=== PATIENT | male | born 1950 | race Caucasian/White ===

== ENCOUNTER 2020-09-28 07:59 | Emergency (ER) | payer MEDICARE, SELFPAY ==
[2020-09-28 08:09] VITALS: BP 149/80; PULSE 74; RESP 12; TEMP 36.5; O2SAT 100
--- NOTE | 2020-09-28 08:23 | ED.LOWEXIN ---
HPI - Extremity Injury (Lower) General Chief Complaint: Extremity Injury, Lower Stated Complaint: lt snyder injury Time Seen by Provider: 09/28/20 08:15 Source: patient and RN notes reviewed Mode of arrival: ambulatory Limitations: no limitations History of Present Illness HPI Narrative: Patient presents today complaining of a wound to his left lower leg that was sustained 3 days ago. He reports a hard plastic barrel fell and scraped the snyder area on his leg. Currently rates his pain 3/10, which occasionally increases with movement and walking. He has been taking aspirin and using Neosporin with some relief. He is not up-to-date on his tetanus vaccine. He does report some swelling and bruising to the ankle. Reports he does continue to walk on his treadmill after the injury. Denies numbness or tingling in the leg or foot. History of diabetes and psoriatic arthritis. Related Data Home Medications Medication Instructions Recorded Confirmed infliximab [Remicade] IV 06/11/19 12/18/19 allopurinol 100 mg tablet 100 mg PO DAILY tablet 12/18/19 12/18/19 Allergies Allergy/AdvReac Type Severity Reaction Status Date / Time No Known Allergies Allergy Verified 12/18/19 10:03 Review of Systems Review of Systems: Narrative: CONSTITUTIONAL: Denies body aches, fever, chills, or sweats. EYES: Denies visual changes, redness, or discharge. ENT: Denies rhinorrhea, congestion, sore throat, or otalgia. CARDIOVASCULAR: Denies chest pain, palpitations, or edema. RESPIRATORY: Denies cough or dyspnea. GASTROINTESTINAL: Denies abdominal pain, nausea, vomiting, or diarrhea. GENITOURINARY: Denies dysuria or hematuria. SKIN: Denies rash, itching. + Wound to the left lower leg MUSCULOSKELETAL: Denies back pain, joint pain, or myalgia. NEUROLOGIC: Denies headache, numbness, tingling, or weakness. PSYCH: Denies depression or anxiety. [facility] Past Medical History Medical History Angina at rest Anxiety Diabetes Elevated liver enzymes Chronic Fracture, ribs Gout HLD (hyperlipidemia) HTN (hypertension) Kidney stones ARNOLD on CPAP Psoriatic arthritis Sleep apnea Type 2 diabetes mellitus Family History Family History Father Family history of elevated blood lipids Family history of cardiovascular disease, Onset Age: 63 Mother Family history of malignant neoplasm of breast in first degree relative Social History Social History Smoking status: Never smoker Second hand tobacco smoke exposure: No Alcohol intake: current Gender identity (if verbalized by the patient): Male Comments At time of signature, I have reviewed and agree with nursing past medical, surgical, social and family history unless otherwise noted. Please see nursing chart for further information. There is no relevant family history pertinent to the presenting complaint Exam Narrative: Exam Narrative: GENERAL: Well-appearing, well-nourished, and in no acute distress. HEAD: Normocephalic, atraumatic. EYES: EOMI. No redness or drainage. Conjunctivae normal. ENT: Mucous membranes pink and moist. NECK: Normal AROM. CHEST: No respiratory distress. EXTREMITIES: Normal range of motion. No edema. SKIN: Warm, dry, no rash. Capillary refill normal. Normal skin turgor. Approximately 3 x 3 cm irregularly shaped scabbed over skin tear to the left snyder with mild surrounding erythema. Wound is dry. There is ~0.5cm round blister with yellow filled fluid to the left lower edge of the wound. No induration or fluctuance noted. Patient's left ankle has some 1+ pitting edema and some dependent ecchymosis. Distal sensation intact. Capillary refill normal. Pedal pulses normal. Full range of motion of the ankle without pain. Ankle is nontender. NEURO: No focal deficits. Alert and orien
[2020-09-28] MEDS: TETANUS/DIPHTHERIA TOXOIDS ADSORB 0.5 ML VIAL (*BKC) IM (08:34)
== END 2020-09-28 09:03 | disposition home or self-care (01) ==
PROVIDERS: Emergency Provider Nurse Practitioner
DX: S81.812A Laceration without foreign body, left lower leg, initial encounter (principal); L08.9 Local infection of the skin and subcutaneous tissue, unspecified; W20.8XXA Other cause of strike by thrown, projected or falling object, initial encounter; Z23 Encounter for immunization; E11.9 Type 2 diabetes mellitus without complications; L40.50 Arthropathic psoriasis, unspecified; M10.9 Gout, unspecified; E78.5 Hyperlipidemia, unspecified; I10 Essential (primary) hypertension; G47.30 Sleep apnea, unspecified; I20.9 Angina pectoris, unspecified; F41.9 Anxiety disorder, unspecified
CPT/HCPCS: 90471; 90714; 99213; G0463

== ENCOUNTER 2023-05-23 15:39 | Emergency (ER) | payer MEDICARE, SELFPAY ==
[2023-05-23] VITALS (18 sets, daily range): BP systolic 158–193; BP diastolic 76–99; PULSE 61–82; RESP 10–18; TEMP 36.6; O2SAT 95–100
--- NOTE | ~2023-05-23 | XR_ITS ---
EXAMINATION: XR chest 2V DATE: 05/23/2023 16:13 INDICATION: Nonradiating chest pain. TECHNIQUE: Frontal and lateral views of the chest were obtained. COMPARISON: Chest 2 views 02/27/2016, CT abdomen and pelvis 05/20/2016 FINDINGS: There is no pneumonia, pleural effusion, or pneumothorax. The heart size is normal. There a re old healed left rib fractures. IMPRESSION: 1. No acute cardiopulmonary disease. Reviewed, dictated and finalized at location E.
--- NOTE | 2023-05-23 15:41 | ECG_ITS ---
Measurements Intervals [place] Rate: 69 P: 29 [place]: 216 QRS: 55 QRSD: 110 T: -6 QT: 383 QTc: 412 Interpretive Statements SINUS RHYTHM WITH FIRST DEGREE AV BLOCK CANNOT RULE OUT iNFERIOR MYOCARDIAL INFARCTION , PROBABLY OLD [40+ ms Q WAVE AND/OR ST/T ABNORMALITY IN II/aVF] LOW-VOLTAGE QRS IN PRECORDIAL LEADS ABNORMAL ECG NO PREVIOUS ECG AVAILABLE FOR COMPARISON Electronically Signed On 05-23-2023 18:39:26 CDT by Alf Morales M.D.
[2023-05-23 16:15] LABS: Basophils Absolute Auto 0.1 K/mm3 (0.0-0.1); Basophils Percent Auto 0.8 % (0.2-1.2); Hematocrit 42.1 % (42.0-52.0); Hemoglobin 13.6 g/dL (14.0-18.0); Immature Granulocyte Absolute 0.03 K/mm3 (0.00-0.031); Immature Granulocyte Percent A 0.4 % (0-0.5); Lymphocytes Absolute Auto 2.86 K/mm3 (0.9-3.2); Lymphocytes Percent Auto 38.9 % (18.3-44.2); Mean Corpuscular HGB Conc 32.3 g/dl (32-36); Mean Corpuscular Hemoglobin 32.4 pg (26-34); Mean Corpuscular Volume 100.2 fl (80-100); Mean Platelet Volume 9.5 fl (7.4-10.4); Monocytes Absolute Auto 0.5 K/mm3 (0.1-0.6); Monocytes Percent Auto 6.7 % (2.6-8.5); Neutrophils Absolute Auto 3.9 K/mm3 (1.3-6.7); Neutrophils Percent Auto 53.2 % (45.5-73.1); Platelet Count Result 198 k/mm3 (150-375); Red Cell Distribution Width 14.3 % (11.5-14.5); White Blood Count 7.4 K/mm3 (4.5-10.0)
[2023-05-23 16:24] LABS: Alanine Aminotransferase 26 U/L (6-50); Albumin Level 4.4 g/dL (3.5-5.1); Alkaline Phosphatase 92 U/L (38-126); Anion Gap 8 mmol/L (8-16); Aspartate Amino Transferase 39 U/L (17-59); Bilirubin,Total 0.7 mg/dL (0.2-1.3); Blood Urea Nitrogen 18 mg/dL (9-20); Calcium 9.6 mg/dL (8.4-10.2); Carbon Dioxide 25 mmol/L (22-30); Chloride 104 mmol/L (98-107); Estimated CRCL calculation 70 ml/min; Estimated Glomerular Filt Rate > 60; Glucose 139 mg/dL (65-110); Lipase 382 U/L (23-300); Potassium 3.7 mmol/L (3.4-5.0); Sodium 137 mmol/L (137-145)
[2023-05-23 16:26] LABS: INR 1.2; Partial Thromboplastin Time 38.3 SECONDS (22.3-36.8); Prothrombin Time 15.6 Seconds (11.1-14.7)
[2023-05-23 16:36] LABS: Troponin I < 0.012 ng/mL (0.000-0.034)
--- NOTE | 2023-05-23 18:28 | ED.CHESTPAIN ---
HPI - Chest Pain General Chief Complaint: Chest Pain Stated Complaint: chest pain Time Seen by Provider: 05/23/23 18:06 History of Present Illness HPI narrative: Patient is a 72-year-old male with history of hypertension, psoriatic arthritis, aortic stenosis, hyperlipidemia, diabetes presenting with palpitations. Patient states that earlier today he had an episode of chest tightness associated with palpitations. States that he has been struggling with worsening anxiety over the last couple of months. No lightheadedness or shortness of breath. No leg swelling. No fevers or chills, cough, abdominal pain, nausea or vomiting, diarrhea, numbness or weakness. Related Data Home Medications Medication Instructions Recorded Confirmed infliximab 100 mg intravenous IV 06/11/19 12/18/19 solution (Remicade) allopurinol 100 mg tablet 100 mg PO DAILY 12/18/19 12/18/19 Allergies Allergy/AdvReac Type Severity Reaction Status Date / Time No Known Allergies Allergy Verified 05/23/23 18:08 Review of Systems Review of Systems: All systems reviewed & are unremarkable except as noted in HPI and below PMFSH Past Medical History Medical History Angina at rest Anxiety Diabetes Elevated liver enzymes Chronic Fracture, ribs Gout HLD (hyperlipidemia) HTN (hypertension) Kidney stones ARNOLD on CPAP Psoriatic arthritis Sleep apnea Type 2 diabetes mellitus Family History Family History Father Family history of elevated blood lipids Family history of cardiovascular disease, Onset Age: 63 Mother Family history of malignant neoplasm of breast in first degree relative Social History Social History Smoking status: Never smoker Second hand tobacco smoke exposure: No Alcohol intake: current Gender identity (if verbalized by the patient): Male Exam Narrative: GENERAL: Well-appearing, in no acute distress, pleasant and cooperative HEAD: Normocephalic, atraumatic. EYES: PERRLA and EOMI. ENT: Grossly unremarkable NECK: Supple. CHEST: Clear to auscultation. No respiratory distress. HEART: Regular rate and rhythm. +murmur ABDOMEN: Soft, nontender, nondistended EXTREMITIES: Normal range of motion. No edema. SKIN: Warm, dry, no rash. NEURO: No focal deficits. Alert and oriented x3. PSYCH: Normal mood and affect. Course Vital Signs Vital signs: Vital Signs Temperature 97.8 F 05/23/23 15:49 Pulse Rate 81 05/23/23 15:49 Respiratory Rate 18 05/23/23 15:49 Blood Pressure 158/76 H 05/23/23 15:49 Pulse Oximetry 100 05/23/23 15:49 Oxygen Delivery Room Air 05/23/23 15:49 Temperature 97.8 F 05/23/23 15:49 Pulse Rate 62 05/23/23 22:01 Respiratory Rate 17 05/23/23 22:01 Blood Pressure 175/88 H 05/23/23 22:01 Pulse Oximetry 98 05/23/23 22:01 Oxygen Delivery Room Air 05/23/23 18:06 MDM - Chest Pain MDM Narrative Medical decision making narrative: Patient is a 72-year-old male presenting with an episode of chest tightness and palpitations. Patient is hypertensive, otherwise vitals are within normal limits. Exam remarkable for the above. EKG per my interpretation shows normal sinus rhythm, first-degree AV block, no ST elevations or depressions. Blood work is unremarkable. Troponins within normal limits. Lipase very mildly elevated. Does not meet criteria for pancreatitis. TSH is normal. Chest x-ray without acute abnormalities. Patient given a dose of lorazepam as he does report very significant anxiety. He and his state that his anxiety has been increasingly severe over the last year or so. Discussed the reassuring work-up and advised that he follow-up closely with his PCP. He actually has a stress test next week, advised to make sure that he keep this appointment. Strict return prec
[2023-05-23] MEDS: SODIUM CHLORIDE 0.9% IV 1,000 ML 999 ML IV CONT (19:00)
[2023-05-23] MEDS: LORazepam (*CRX) 0.5 MG TABLET PO (19:00)
[2023-05-23 19:31] LABS: Troponin I 0.014 ng/mL (0.000-0.034)
== END 2023-05-23 22:02 | disposition home or self-care (01) ==
PROVIDERS: Emergency Medicine; Emergency Provider Emergency Medicine
DX: R07.89 Other chest pain (principal); F41.9 Anxiety disorder, unspecified; R00.2 Palpitations; I10 Essential (primary) hypertension; E78.5 Hyperlipidemia, unspecified; E11.9 Type 2 diabetes mellitus without complications
CPT/HCPCS: 36415; 71046; 80053; 83690; 84443; 84484; 85025; 85610; 85730; 93005; 96360; 99284; A9270; J7030

== ENCOUNTER 2023-06-15 03:05 | Day surgery (SDC) | payer MEDICARE, SELFPAY ==
[2023-06-15] VITALS (17 sets, daily range): BP systolic 130–165; BP diastolic 72–90; PULSE 61–78; RESP 12–19; TEMP 36.6; O2SAT 96–100; BMI 31.8
[2023-06-15 10:45] LABS: Basophils Absolute Auto 0.1 K/mm3 (0.0-0.1); Eosinophils Percent Auto 0.1 % (0-4.4); Hematocrit 43.2 % (42.0-52.0); Hemoglobin 13.9 g/dL (14.0-18.0); Immature Granulocyte Absolute 0.01 K/mm3 (0.00-0.031); Immature Granulocyte Percent A 0.1 % (0-0.5); Lymphocytes Absolute Auto 3.69 K/mm3 (0.9-3.2); Lymphocytes Percent Auto 44.4 % (18.3-44.2); Mean Corpuscular HGB Conc 32.2 g/dl (32-36); Mean Corpuscular Hemoglobin 32.2 pg (26-34); Mean Platelet Volume 9.5 fl (7.4-10.4); Monocytes Absolute Auto 0.5 K/mm3 (0.1-0.6); Monocytes Percent Auto 6.4 % (2.6-8.5); Platelet Count Result 193 k/mm3 (150-375); Red Blood Count 4.32 M/mm3 (4.6-6.20); Red Cell Distribution Width 14.2 % (11.5-14.5); White Blood Count 8.3 K/mm3 (4.5-10.0)
[2023-06-15 11:15] LABS: Anion Gap 11 mmol/L (8-16); Blood Urea Nitrogen 20 mg/dL (9-20); Carbon Dioxide 24 mmol/L (22-30); Chloride 105 mmol/L (98-107); Estimated CRCL calculation 70 ml/min; Estimated Glomerular Filt Rate > 60; Glucose 116 mg/dL (65-110); Potassium 3.8 mmol/L (3.4-5.0); Sodium 140 mmol/L (137-145)
--- NOTE | 2023-06-15 11:58 | WPDMODSED ---
Moderate Sedation Note-Pt Data Patient Data Diagnosis: intermittent chest pain abnormal nuclear stress test known history of aortic stenosis felt to be mild Present Complaint: no complaint other than procedural anxiety Procedure to be performed/Plan: coronary angiography Allergies Allergy/AdvReac Type Severity Reaction Status Date / Time No Known Allergies Allergy Verified 06/15/23 10:21 Home Medications Medication Instructions Recorded Confirmed Type allopurinol 100 mg tablet 300 mg PO DAILY 12/18/19 06/14/23 History blood sugar diagnostic (Accu-Chek #100 ea 12/19/19 Rx Guide test strips) blood-glucose meter (Accu-Chek #1 ea 12/19/19 Rx Guide Glucose Meter) lancets (Accu-Chek Fastclix Lancet #100 ea 12/19/19 Rx Drum) pioglitazone 45 mg tablet 45 mg PO DAILY #90 tabs 03/09/20 06/14/23 Rx semaglutide 7 mg tablet (Rybelsus) 7 mg PO DAILY #90 tabs 04/01/20 06/14/23 Rx olmesartan 40 mg tablet 40 mg PO DAILY #90 tabs 10/27/20 06/14/23 Rx aspirin 81 mg tablet,delayed 81 mg PO DAILY 06/14/23 06/14/23 History release atorvastatin 40 mg tablet 40 mg PO HS 06/14/23 06/14/23 History infliximab-axxq 100 mg intravenous 700 mg IV DIRECTED 06/14/23 06/14/23 History solution (Avsola) metoprolol succinate 25 mg 25 mg PO DAILY 06/14/23 06/14/23 History tablet,extended release 24 hr sildenafil 50 mg tablet 50 mg PO DAILY PRN impotence 06/14/23 06/14/23 History Current Medications: Active Medications Sodium Chloride (Normal Saline Iv) 500 mls @ 100 mls/hr IV CONT .Q5H JOHNATHON Sedation/Anesthesia: No previous sedation/anesthesia problems (including family history). [facility] Past Medical History Medical History Angina at rest Anxiety Diabetes Elevated liver enzymes Chronic Fracture, ribs Gout HLD (hyperlipidemia) HTN (hypertension) Kidney stones ARNOLD on CPAP Psoriatic arthritis Sleep apnea Type 2 diabetes mellitus Family History Family History Father Family history of elevated blood lipids Family history of cardiovascular disease, Onset Age: 63 Mother Family history of malignant neoplasm of breast in first degree relative Social History Social History Smoking status: Never smoker Second hand tobacco smoke exposure: No Alcohol intake: current Alcohol use details: 2 drinks per month Substance use: never Substance use type: does not use Living arrangements: with family Gender identity (if verbalized by the patient): Male Spiritual care concerns: No Mod Sed Physical Exam Physical Exam Pre Procedural Exam: Normal: Appearance, Neck, Throat, Airway, Lungs, Heart Size, Heart Rate ( grade 3/6 crescendo decrescendo murmur audible at the base), Heart Rhythm, Neuro Exam and Extremities Hours since solid foods: 12 Hours since liquid intake: 12 Mallampati Classification: class II Internal Medicine - PN: Obj Da Vital Signs Vital Signs: Vital Signs - 24 hr 06/15/23 10:26 Temperature 36.6 C Pulse Rate 69 Respiratory Rate 16 Blood Pressure 162/81 H Pulse Oximetry 100 Oxygen Delivery Room Air Meds/Results Medications: Active Medications Generic Name Dose Route Start Last Admin Trade Name Freq PRN Reason Stop Dose Admin Sodium Chloride 500 mls @ 100 mls/hr 06/15/23 10:00 Normal Saline Iv IV CONT .Q5H JOHNATHON Labs 06/15/23 10:24 06/15/23 10:24 Labs: Laboratory Results - last 24 hr 06/15/23 10:24 WBC 8.3 RBC 4.32 L Hgb 13.9 L Hct 43.2 MCV 100.0 MCH 32.2 MCHC 32.2 RDW 14.2 Plt Count 193 MPV 9.5 Immature Gran % (Auto) 0.1 Neut % (Auto) 48.0 Lymph % (Auto) 44.4 H Comal % (Auto) 6.4 Eos % (Auto) 0.1 Baso % (Auto) 1.0 Lymph # (Auto) 3.69 H Comal # (Auto) 0.5 Eos # (Auto) 0.0 Baso # (Auto) 0.1 Abs I
--- NOTE | 2023-06-15 12:51 | WPDCARDPROC ---
Cardiac Cath Procedure Note Date of procedure:: 06/15/23 Performing physician:: Negrito Burnett MD Indication:: intermittent chest tightness abnormal nuclear stress test aortic stenosis Brief clinical history:: this is a 72-year-old gentleman previous history of coronary disease referred for angiography because of mildly abnormal Lexiscan stress test showing apical lateral perfusion abnormality. He is known to have aortic valve stenosis which is felt to be [id number]. To clarify coronary anatomy this exam has been recommended Procedure Procedure performed:: coronary angiography Sedation/Medication given:: fentanyl 50 mg Versed 2 mg case start time 12:02 p.m. case end time 12:44 p.m. sedation provided by Qasim Clay RN trained observer Access site:: right femoral artery Estimated blood loss:: 50 cc Procedure note:: patient was brought to the cardiac catheterization lab in the postabsorptive state where the right femoral triangle was prepared and draped in the normal fashion. Anesthesia was provided with 1% lidocaine infiltrated locally. Using modified Seldinger technique the femoral artery was punctured and a 5 Cameroonian vascular sheath placed. I noted that on advancing the J wire from the sheath into the iliac artery there was calcific plaque in the artery prohibiting advancing the sheath wire any further. After placing the vascular sheath I then used a Dara wire mounted on the RCA catheter to access the central aorta this was then advanced into the aortic root. Initially I was unable to use this catheter to engage the right coronary ostium successfully. I then exchanged for a longer 22 cm sheath and used the FL4 catheter over the 035 guidewire to engage and inject the left coronary artery in multiple projections. I then used the same guidewire to advance the JR4 catheter into the aortic root. I was still unable to torque the catheter successfully because of the disease in the iliac. I then over the 035 guidewire exchanged for a 45 cm 5 Cameroonian sheath. Following this I once again attempted to engage the right coronary ostium. This was unsuccessful I was able to successfully engage and inject the right coronary ultimately with a AR modified catheter. Following this the cineangiograms were reviewed and the case was terminated. The patient was taken to the holding area for manual sheath removal. He tolerated seizure well there were no apparent complications. There was no evidence of groin hematoma upon completion of the case. Findings:: Hemodynamics: Central aortic pressure is 153/73. we did not cross the stenotic aortic valve to measure LV pressure during this procedure the left main coronary artery is medium in caliber and has eccentric stenosis. In the cranial projections there appears to be as much as 50 60% stenosis in the a caudal projections there is no significant lesion. There was no pressure damping on engaging the left main coronary artery. The left anterior descending is a medium caliber artery with extends down to the apex. The LAD has minimal luminal irregularity to there is some calcium but no high-grade stenosis is seen. There is a uncommon discrete aneurysmal area in the mid LAD at the origin of the largest diagonal branch. This has a discrete villagran aneurysm like appearance the circumflex is a moderate caliber artery giving rise to the marginal branches. The circumflex system has modest luminal irregularities but no flow-limiting lesions are seen. The right coronary artery is a large caliber vessel with a inferior takeoff. It is dominant to the posterior circulation. The proximal right coronary artery has a eccentric shelf-like lesion representing about 50% stenosis. The remainder of the right coronary artery is free of significant disease. Conclusion:: 1. Coronary artery disease involving what appears to be moderate non flow-limiting disease of the left main as describe
== END 2023-06-15 18:40 | disposition home or self-care (01) ==
PROVIDERS: Visit Provider Specialist
PROC: 4A023N7 Measurement of Cardiac Sampling and Pressure, Left Heart, Percutaneous Approach (ICD-10-PCS; CPT 93452; principal; 2023-06-15 11:30)
DX: R94.39 Abnormal result of other cardiovascular function study (principal); I25.10 Atherosclerotic heart disease of native coronary artery without angina pectoris; I77.89 Other specified disorders of arteries and arterioles; F41.9 Anxiety disorder, unspecified; E11.9 Type 2 diabetes mellitus without complications; E78.5 Hyperlipidemia, unspecified; I10 Essential (primary) hypertension; G47.33 Obstructive sleep apnea (adult) (pediatric); G47.30 Sleep apnea, unspecified; Z99.89 Dependence on other enabling machines and devices; Z79.82 Long term (current) use of aspirin; Z79.85 Long-term (current) use of injectable non-insulin antidiabetic drugs; Z86.79 Personal history of other diseases of the circulatory system; Z80.3 Family history of malignant neoplasm of breast; Z82.49 Family history of ischemic heart disease and other diseases of the circulatory system
CPT/HCPCS: 36415; 80048; 85025; 93458; C1769; C1887; C1894; J1644; J2250; J3010; J7040

== ENCOUNTER 2023-09-21 19:26 | Inpatient (IN) | payer MEDICARE, SELFPAY ==
--- NOTE | ~2023-09-21 | XR_ITS ---
EXAMINATION: XR chest 2V Exam Date/Time: 09/21/2023 20:40 SAP PROJECT MANAGER HISTORY: dyspnea, post CABG, pt wearing holter monitor Comparison: 05/23/2023. RESULT: Lines, tubes, and devices: Electronic device projects over the chest. Intact sternotomy wires. Cardi ac valve replacement. Lungs and pleura: Subsegmental bibasilar airspace disease. Moderate bilateral costophrenic angle linda nting. Cardiomediastinal silhouette: Stable. Other: No acute osseous or upper abdominal finding. IMPRESSION: Moderate bilateral effusions, with likely bibasilar atelectasis. Infection not excluded. Reviewed, dictated and finalized at location K. PROJECT MANAGER
--- NOTE | ~2023-09-21 | XR_ITS ---
Portable chest x-ray Comparison: 09/24/2023 Clinical History: Right effusion Findings: [id number] bilateral pleural effusions. Cardiomediastinal silhouette is stable, st atus post aortic valve replacement. Bones and soft tissues are unremarkable. Impression: [id number] bilateral pleural effusions. Reviewed, dictated and finalized at [facility]. INSPECTOR Impression: [id number] bilateral pleural effusions.
--- NOTE | ~2023-09-21 | XR_ITS ---
EXAMINATION: [id number] DATE: 09/24/2023 15:08 INDICATION: Status post thoracentesis TECHNIQUE: frontal and lateral views of the chest were obtained. COMPARISON: Chest radiograph dated 09/24/2023 at 9:35 AM FINDINGS: Improvement in aeration in the right lower lung zone. Unchanged small left and decreased now small ri ght pleural effusions with blunting of the costophrenic angles and posterior sulci. Associated basila r atelectasis. No pulmonary edema or pneumothorax. Cardiomegaly. Median sternotomy wires and mediasti nal surgical clips are seen, likely from prior coronary artery bypass grafting. Is also been prior ao rtic valve repair. IMPRESSION: 1. Unchanged small left and decreased now small right pleural effusion post thoracentesis with improv ed aeration at the right lower lung zone. Reviewed, dictated and finalized at location A. RTISING SALES EXECUTIVE IMPRESSION: 1. Unchanged small left and decreased now small right pleural effusion post tho racentesis with improved aeration at the right lower lung zone.
--- NOTE | ~2023-09-21 | US_ITS ---
EXAMINATION: US thoracentesis DATE: 09/24/2023 15:10 INDICATION: pleural effusion TECHNIQUE: The procedure and its risks and benefits were discussed with the patient. Potential risks discussed included bleeding, infection, and pneumothorax. The patient understood the risks and agreed to proceed. The skin was prepped and draped in sterile fashion. 1% lidocaine was used for local anes thesia. Under ultrasound guidance, a 5 Fr catheter with trochar was advanced into the right pleural e ffusion. Fluid was aspirated. The catheter was removed, and a dressing was applied. There were no imm ediate complications. FINDINGS: Ultrasound images demonstrate a moderate-sized right pleural effusion and the catheter within the flu id. IMPRESSION: 1. Successful ultrasound-guided thoracentesis yielding 1000 mL of dark reddish rohan-colored fluid. Reviewed, dictated and finalized at location A. ICE SUPERINTENDENT
--- NOTE | ~2023-09-21 | CT_ITS ---
EXAMINATION: CTA chest PE protocol DATE: 09/22/2023 00:35 INDICATION: Dyspnea. Coronary artery bypass grafting. Weeks prior. TECHNIQUE: Computed tomography (CT) pulmonary angiogram of the chest was performed with 100 mL Omnipa que-350 intravenous contrast. Additional 3D reconstructions utilizing coronal maximum intensity proje ction (MIP) were performed. Automated exposure control and iterative reconstruction technique were em ployed. The dose-length product was 699.00 mGy-cm. COMPARISON: CT abdomen pelvis dated 09/20/2015 FINDINGS: No pulmonary embolism. Moderate-sized right and small left pleural effusions with collapse of the bas ilar segments of the bilateral lower lobes. And mild dependent atelectasis in the lingula and right m iddle lobe. Aerated portion of lungs are clear with no, pneumonia or pulmonary edema. Heart size is n ormal. Atherosclerotic coronary artery calcification and change of prior median sternotomy and gerard ry artery bypass grafting. Aortic valve repair. Thoracic aorta is normal caliber with no dissection. No pathologically enlarged thoracic lymphadenopathy. 12 x 4 mm stone or cluster of stones at an upper pole calyx of the left kidney. Mild thoracic kyphosis with mild anterior wedging of a few mid thorac ic vertebral bodies. Schmorl's node along the superior endplate of T4. IMPRESSION: 1. No pulmonary embolism. 2. Moderate right and small left pleural effusions with associated atelectasis. 3. Small pericardial effusion. 4. Left nephrolithiasis. Reviewed, dictated and finalized at location A. ENT DEVELOPMENT COORDINATOR
--- NOTE | ~2023-09-21 | XR_ITS ---
EXAMINATION: XR chest 2V DATE: 09/24/2023 09:37 INDICATION: Pleural effusions TECHNIQUE: Frontal and lateral views of the chest are obtained COMPARISON: 09/23/2023 FINDINGS: There are moderate-sized right and small left pleural effusions without significant change. Associated bibasilar airspace opacities are stable. The heart size is normal. There are changes of c ardiac valve replacement. There is mild thoracic spondylosis. Healed left-sided rib fractures are not ed. IMPRESSION: 1. Moderate size right and small left pleural effusions with associated bibasilar atelectasis, stable . Reviewed, dictated and finalized at location B. UNT SUPPORT MANAGER IMPRESSION: 1. Moderate size right and small left pleural effusions with associated bibasil ar atelectasis, stable.
[2023-09-21 19:49] VITALS: BP 143/84; PULSE 87; RESP 18; TEMP 36.3; O2SAT 93
--- NOTE | 2023-09-21 19:54 | ECG_ITS ---
Measurements Intervals [place] Rate: 84 P: 46 CT: 202 QRS: 90 QRSD: 97 T: 9 QT: 360 QTc: 427 Interpretive Statements SINUS RHYTHM WITH FREQUENT VENTRICULAR PREMATURE COMPLEXES NONSPECIFIC T-WAVE ABNORMALITY POOR R-WAVE PROGRESSION ABNORMAL ECG COMPARED TO ECG 05/23/2023 16:07:15 NO SIGNIFICANT CHANGES Electronically Signed On 09-22-2023 8:19:04 PROPERTY CUSTODIAN by Negrito Burnett M.D.
--- NOTE | 2023-09-21 19:55 | ED.SOB ---
HPI - SOB/Dyspnea General Chief Complaint: Shortness of Breath/Dyspnea Stated Complaint: SOB- open heart sx 4wk ago Time Seen by Provider: 09/21/23 23:37 Focused HPI: 73 y/o M who is s/p CABG and aortic valve replacement 5 weeks ago reports for evaluation for exertional dyspnea x1 day. Pt had 3 vessel CABG performed at [facility] and since then, has had progressive improvement with dyspnea, waking 8-10 minutes per day. States today he cant even walk 20 seconds without becoming out of breath. States after surgery, he developed arrhythmias including A fib, unsure of the remainder. He has a Holter monitor in place. He was started on Xarelto 3 days ago by his digital advertising analyst, Dr. Holly. He reports soreness in his chest he is attributing to post op pain, otherwise denies CP. Reports cough in the morning, denies fever, BLE, hemoptysis. GENERAL: Well-appearing, well-nourished, and in no acute distress. HEAD: Normocephalic, atraumatic. CHEST: Clear to auscultation. ?No respiratory distress. Well healing sternal incision without surrounding erythema, induratio or fluctuation. 1+ BLE HEART: Regular rate and rhythm.? NEURO: ?Alert and oriented x3. Patient screened in triage and initial orders placed.? ?Additional care and disposition to be based upon?diagnostic testing and treatment. History of Present Illness HPI Narrative: 73 y/o M who is s/p CABG and aortic valve replacement 5 weeks ago reports for evaluation for exertional dyspnea x1 day. Pt had 3 vessel CABG performed at [facility] and since then, has had progressive improvement with dyspnea, waking 8-10 minutes per day. States today he cant even walk 20 seconds without becoming out of breath. States after surgery, he developed arrhythmias including A fib, unsure of the remainder. He has a Holter monitor in place. He was started on Xarelto 3 days ago by his digital advertising analyst, Dr. Holly. He reports soreness in his chest he is attributing to post op pain, otherwise denies CP. Reports mildly increased lower extremity edema bilaterally. Reports cough in the morning, denies fever, hemoptysis. Patient wears a CPAP at night. Related Data Home Medications Medication Instructions Recorded Confirmed allopurinol 100 mg tablet 300 mg PO DAILY 12/18/19 06/14/23 aspirin 81 mg tablet,delayed 81 mg PO DAILY 06/14/23 06/14/23 release atorvastatin 40 mg tablet 40 mg PO HS 06/14/23 06/14/23 infliximab-axxq 100 mg intravenous 700 mg IV DIRECTED 06/14/23 06/14/23 solution (Avsola) metoprolol succinate 25 mg 25 mg PO DAILY 06/14/23 06/14/23 tablet,extended release 24 hr sildenafil 50 mg tablet 50 mg PO DAILY PRN impotence 06/14/23 06/14/23 Allergies Allergy/AdvReac Type Severity Reaction Status Date / Time No Known Allergies Allergy Verified 09/21/23 19:55 Review of Systems Review of Systems: CONSTITUTIONAL: Denies fever, chills, or sweats. EYES: Denies visual changes, redness, or discharge. ENT: Denies rhinorrhea, congestion, sore throat, or otalgia. CARDIOVASCULAR: See HPI RESPIRATORY: See HPI GASTROINTESTINAL: Denies abdominal pain, nausea, vomiting, or diarrhea. GENITOURINARY: Denies dysuria or hematuria. SKIN: Denies rash or itching. MUSCULOSKELETAL: Denies back pain, joint pain, or myalgia. NEUROLOGIC: Denies headache, numbness, or weakness. PSYCHIATRIC: Denies anxiety or depression. [facility] Past Medical History Medical History Angina at rest Anxiety Diabetes Elevated liver enzymes Chronic Fracture, ribs Gout HLD (hyperlipidemia) HTN (hypertension) Kidney stones ARNOLD on CPAP Psoriatic arthritis Sleep apnea Type 2 diabetes mellitus Family History Family History Father Family history of elevated blood lipids Family history of cardiovascular disease, Onset Age: 63 Mother Family history of malignant neoplasm of breast in first degree relative Social H
[2023-09-21 20:18] LABS: Basophils Absolute Auto 0.1 K/mm3 (0.0-0.1); Basophils Percent Auto 0.8 % (0.2-1.2); Hematocrit 37.9 % (42.0-52.0); Immature Granulocyte Absolute 0.02 K/mm3 (0.00-0.031); Immature Granulocyte Percent A 0.2 % (0-0.5); Lymphocytes Absolute Auto 2.81 K/mm3 (0.9-3.2); Lymphocytes Percent Auto 27.8 % (18.3-44.2); Mean Corpuscular HGB Conc 31.7 g/dl (32-36); Mean Corpuscular Hemoglobin 30.5 pg (26-34); Mean Corpuscular Volume 96.2 fl (80-100); Mean Platelet Volume 9.6 fl (7.4-10.4); Monocytes Absolute Auto 0.6 K/mm3 (0.1-0.6); Neutrophils Absolute Auto 6.6 K/mm3 (1.3-6.7); Neutrophils Percent Auto 65.2 % (45.5-73.1); Platelet Count Result 252 k/mm3 (150-375); Red Blood Count 3.94 M/mm3 (4.6-6.20); Red Cell Distribution Width 15.5 % (11.5-14.5); White Blood Count 10.1 K/mm3 (4.5-10.0)
[2023-09-21 20:28] LABS: Alanine Aminotransferase 21 U/L (6-50); Albumin Level 3.7 g/dL (3.5-5.1); Alkaline Phosphatase 239 U/L (38-126); Anion Gap 7 mmol/L (8-16); Aspartate Amino Transferase 37 U/L (17-59); Bilirubin,Total 0.8 mg/dL (0.2-1.3); Blood Urea Nitrogen 11 mg/dL (9-20); Calcium 9.6 mg/dL (8.4-10.2); Carbon Dioxide 26 mmol/L (22-30); Chloride 103 mmol/L (98-107); Estimated CRCL calculation 75 ml/min; Estimated Glomerular Filt Rate > 60; Glucose 162 mg/dL (65-110); Lipase 306 U/L (23-300); Potassium 3.9 mmol/L (3.4-5.0); Sodium 136 mmol/L (137-145)
[2023-09-21 20:31] LABS: INR 3.2
[2023-09-21 20:32] LABS: Partial Thromboplastin Time 68.2 SECONDS (22.3-36.8)
[2023-09-21 20:40] LABS: NT Pro B Type Natriuretic Pept 545 pg/mL (19.9-100); Troponin I < 0.012 ng/mL (0.000-0.034)
[2023-09-22] VITALS (29 sets, daily range): BP systolic 112–176; BP diastolic 58–106; PULSE 70–93; RESP 18–37; TEMP 35.8–36.4; O2SAT 92–99; BMI 29.3
--- NOTE | 2023-09-22 | ECG_ITS ---
Measurements Intervals [place] Rate: 77 P: 24 NH: 215 QRS: 75 QRSD: 102 T: 46 QT: 372 QTc: 422 Interpretive Statements SINUS RHYTHM WITH FREQUENT VENTRICULAR PREMATURE COMPLEXES POSSIBLE LEFT ATRIAL ENLARGEMENT [-0.1mV P-WAVE IN V1/V2] POOR R-WAVE PROGRESSION NONSPECIFIC T-WAVE ABNORMALITY COMPARED TO ECG 09/21/2023 20:08:37 NO DIFFERENCE Electronically Signed On 09-22-2023 8:28:19 ELECTRONIC VIDEO GAMES SERVICER by Negrito Burnett M.D.
[2023-09-22 00:33] LABS: Troponin I 0.013 ng/mL (0.000-0.034)
[2023-09-22] MEDS: ASPIRIN 81 MG CHEWABLE TABLET 324 MG PO (00:43)
[2023-09-22] MEDS: FUROSEMIDE INJ 40 MG/4 ML VIAL IV PUSH ×3 (00:43→17:59)
[2023-09-22 00:53] LABS: Alveolar/Arterial O2 Gradient 59.3 mmHg; Base Excess ABG -1.3 mEq/l (+/-2.0); Fractional Inspired Oxygen 21 %; HCO3 ABG 20.9 mEq/l (22.0-26.0); Modified Allen's Test Pass; Oxygen Content ABG 15.7 %vol (16.0-22.0); Oxyhemoglobin 88.7 % THb (90.0-100.0); PCO2 ABG 28.3 mmHg (35.0-45.0); PO2 ABG 56.5 mmHg (80.0-100.0); PO2 FiO2 Ratio Arterial Blood 2.69 %; Site Drawn RIGHT RADIAL; Total Hemoglobin 12.6 g/dL (12.0-18.0); pH ABG 7.487 (7.350-7.450)
--- NOTE | 2023-09-22 03:04 | PM.IMHP ---
H&P: HPI History of Present Illness Date/Time: 09/22/23 03:04 Chief Complaint: Shortness of breath Narrative: Patient is a 70-year-old male who had 3 vessel CABG and aortic valve replacement 5 weeks ago MOBYVONNE, he said he has been doing well since then, able to walk for about 8-10 minutes PD however about few days ago he developed progressively worsening shortness of bread and yesterday he could not get out of bed due to severe short of breath, he denied cough, fever, sore throat. There is just a soreness in his chest but he attributes this to surgical site pain. He also made mention of being placed on xarelto as he was told that he had an arrhythmia following surgery. Patient was found to be tachypneic and in moderate distress on arrival to the emergency department, he was offered BiPAP and he refused, ABG showed normal pH but PO2 of 56.4, chest x-ray showed moderate bilateral pleural effusion, BNP is greater than 500. Patient was started on diuresis with IV furosemide. During this encounter, he was still up in bed was said he feels much better now, as he was unable to complete sentences sees on arrival. Review of Systems Review of Systems: All systems reviewed & are unremarkable except as noted in HPI and below PMFSH Past Medical History Medical History Angina at rest Anxiety Diabetes Elevated liver enzymes Chronic Fracture, ribs Gout HLD (hyperlipidemia) HTN (hypertension) Kidney stones ARNOLD on CPAP Psoriatic arthritis Sleep apnea Type 2 diabetes mellitus Family History Family History Father Family history of elevated blood lipids Family history of cardiovascular disease, Onset Age: 63 Mother Family history of malignant neoplasm of breast in first degree relative Social History Social History Smoking status: Never smoker Second hand tobacco smoke exposure: No Alcohol intake: current Alcohol use details: 2 drinks per month Substance use: never Substance use type: does not use Living arrangements: with family Gender identity (if verbalized by the patient): Male Spiritual care concerns: No Meds Home Medications and Allergies Home Medications Medication Instructions Recorded Confirmed Type allopurinol 100 mg tablet 300 mg PO DAILY 12/18/19 06/14/23 History blood sugar diagnostic (Accu-Chek #100 ea 12/19/19 Rx Guide test strips) blood-glucose meter (Accu-Chek #1 ea 12/19/19 Rx Guide Glucose Meter) lancets (Accu-Chek Fastclix Lancet #100 ea 12/19/19 Rx Drum) pioglitazone 45 mg tablet 45 mg PO DAILY #90 tabs 03/09/20 06/14/23 Rx semaglutide 7 mg tablet (Rybelsus) 7 mg PO DAILY #90 tabs 04/01/20 06/14/23 Rx olmesartan 40 mg tablet 40 mg PO DAILY #90 tabs 10/27/20 06/14/23 Rx aspirin 81 mg tablet,delayed 81 mg PO DAILY 06/14/23 06/14/23 History release atorvastatin 40 mg tablet 40 mg PO HS 06/14/23 06/14/23 History infliximab-axxq 100 mg intravenous 700 mg IV DIRECTED 06/14/23 06/14/23 History solution (Avsola) metoprolol succinate 25 mg 25 mg PO DAILY 06/14/23 06/14/23 History tablet,extended release 24 hr sildenafil 50 mg tablet 50 mg PO DAILY PRN impotence 06/14/23 06/14/23 History Allergies Allergy/AdvReac Type Severity Reaction Status Date / Time No Known Allergies Allergy Verified 09/21/23 19:55 Vital Signs Vital Signs - 24 hr 09/21/23 19:49 09/22/23 00:07 09/22/23 00:07 Temperature 97.4 F L Pulse Rate 87 84 Respiratory Rate 18 Blood Pressure 143/84 H Pulse Oximetry 93 95 Oxygen Delivery Room Air Room Air 09/22/23 00:45 09/22/23 00:50 09/22/23 01:01 Temperature Pulse Rate 90 86 82 Respiratory Rate 26 H 31 H 29 H Blood Pressure 176/101 H 161/98 H 157/89 H Pulse Oximetry 95 95 93 Oxygen Delivery 09/22/23 01:16 09/22/23 01:31
--- NOTE | 2023-09-22 03:17 | PC.NURSE ---
Urine output 650 MLs
[2023-09-22 04:02] LABS: Troponin I 0.016 ng/mL (0.000-0.034)
--- NOTE | 2023-09-22 06:44 | ADMGEN ---
This patient, Jordon Randall, was admitted to IMU Room 214-01 at 0640. Patient/family oriented to hospital policies and general routines including ID bracelet, bed and alarms, visiting hours, pain management, procedures, bathroom and other care routines, personal items, smoking policy, room service/diet, and visiting hours. Information on how to activate the Rapid Response Team has been discussed. Patient/Family are encouraged to report perceived risks to care and to ask questions if they do not understand what they are told or what they should do.
--- NOTE | 2023-09-22 11:03 | PM.CNCAR ---
Assessment and Plan Assessment and plan (1) Pleural effusion: Code(s): J90 - Pleural effusion, not elsewhere classified Status: Acute (2) Hx of CABG: Code(s): Z95.1 - Presence of aortocoronary bypass graft Status: Acute (3) H/O aortic valve replacement with tissue graft: Code(s): Z95.4 - Presence of other heart-valve replacement Status: Acute Plan This is a 73-year-old man with coronary disease and aortic valve disease recently undergoing bypass grafting and bioprosthetic aortic valve replacement over at [facility]. His recovery was complicated by postop atrial fibrillation and also some ventricular arrhythmias and asymptomatic AV node dysfunction as detailed above and noted by his treasury manager. For now metoprolol was recommended for treatment of this and the hope was that as he recovers his arrhythmia would improved. At this time I believe I would continue to treat him with intravenous furosemide because of his pleural effusions. I believe that tapping the right pleural effusion is appropriate as it is likely a postop effusion however I would delay the tap until he is not anticoagulated. Would plan to do this on Sunday. His metoprolol has not been ordered as of this time I will go ahead and resume that at 50 mg daily and follow with you while he is in the hospital. An echocardiogram will be done to ensure that his LV systolic function remains preserved as it was prior to his operation. This will also allow us to ensure that he does not have a pericardial effusion that could be playing a role in his symptoms Negrito Burnett MD [facility] History of Present Illness History of Present Illness Consult date/time: 09/22/23 11:03 Reason For Visit: new onset chf Narrative: This is a 73-year-old man I am seeing today at the request of the hospitalist because of shortness of breath and a right pleural effusion and a clinical diagnosis of congestive heart failure. The patient is known to me from previous/recent catheterization and follows with my partner, Dr. Holly. He has been known to have some aortic valve disease for a number of years. He has been followed in the office for what appeared to be mild asymptomatic aortic stenosis. Recently last year he developed exertional dyspnea with some chest discomfort raising concern for the possibility of coronary disease. A nuclear stress test demonstrated a apical lateral defect and catheterization was recommended. The details of that are in the chart for review. He was found to have some moderate distal left main disease and was referred to cardiothoracic surgeon at [facility] for consultation. His aortic valve stenosis was in the moderate to severe range at that time as well he underwent coronary bypass grafting and aortic valve replacement at [facility]. He received a internal mammary graft to the LAD, a sequence saphenous vein graft to the OM and the posterolateral branch of the RCA. He then also received a Magna ease 25 mm bioprosthetic aortic valve. His postoperative recovery was relatively uncomplicated he did have some postop atrial fibrillation he was been followed by the heart surgeon as well as the arrhythmia Center at [facility] after his recent discharge. In addition to postop atrial fibrillation his outpatient Holter monitors have demonstrated some episodes of asymptomatic complete heart block at some sleeping hours as well as some asymptomatic nonsustained VT. For that he was placed on metoprolol. He noticed in rehab he has been getting symptoms of significantly worsening exertional shortness of breath. His ability to exercise for rehab has significantly declined recently and for that reason he was sent to the emergency room yesterday. He was found to have a moderate size right pleural effusion as well as a small left pleural effusion and was admitted for further evaluation and treatment. Presumably because of his postop AF
[2023-09-22] MEDS: METOPROLOL SUCCINATE EXT REL 50 MG TABCR PO (11:41)
--- NOTE | 2023-09-22 11:45 | ECG_ITS ---
Measurements Intervals [place] Rate: 77 P: 51 NE: 212 QRS: 59 QRSD: 105 T: 29 QT: 375 QTc: 427 Interpretive Statements SINUS RHYTHM WITH FIRST DEGREE AV BLOCK WITH FREQUENT VENTRICULAR PREMATURE COMPLEXES POOR R-WAVE PROGRESSION POSSIBLE LEFT ATRIAL ENLARGEMENT [-0.1mV P-WAVE IN V1/V2] NONSPECIFIC T-WAVE ABNORMALITY ABNORMAL ECG COMPARED TO ECG 09/22/2023 00:02:30 NO SIGNIFICANT DIFFERENCE Electronically Signed On 09-22-2023 19:10:53 CAR FILLER by Negrito Burnett M.D.
--- NOTE | 2023-09-22 13:59 | PM.IMPN ---
Progress Note: A&P Assessment and Plan (1) Pleural effusion: Code(s): J90 - Pleural effusion, not elsewhere classified Status: Acute Assessment and Plan: Right sided thoracentesis planned for today, 09/22/23 (2) Acute CHF (congestive heart failure): Code(s): I50.9 - Heart failure, unspecified Status: Acute Assessment and Plan: Lasix; I/O; (3) Hx of CABG: Code(s): Z95.1 - Presence of aortocoronary bypass graft Status: Acute (4) H/O aortic valve replacement with tissue graft: Code(s): Z95.4 - Presence of other heart-valve replacement Status: Acute (5) HLD (hyperlipidemia): Qualifiers: Hyperlipidemia type: mixed hyperlipidemia Qualified Code(s): E78.2 - Mixed hyperlipidemia Code(s): E78.5 - Hyperlipidemia, unspecified Status: Acute (6) HTN (hypertension): Qualifiers: Hypertension type: essential hypertension Qualified Code(s): I10 - Essential (primary) hypertension Code(s): I10 - Essential (primary) hypertension Status: Acute Plan Jordon Randall is a 73 yo M who presented to the ED with shortness of breath. He was found to have some moderate distal left main disease and was referred to cardiothoracic surgeon at [facility] for consultation.? His aortic valve stenosis was in the moderate to severe range at that time as well he underwent coronary bypass grafting and aortic valve replacement at [facility].? He received a internal mammary graft to the LAD, a sequence saphenous vein graft to the OM and the posterolateral branch of the RCA.? He then also received a Magna ease 25 mm bioprosthetic aortic valve.? His postoperative recovery was relatively uncomplicated he did have some postop atrial fibrillation he was been followed by the heart surgeon as well as the arrhythmia Center at [facility] after his recent discharge.? In addition to postop atrial fibrillation his outpatient Holter monitors have demonstrated some episodes of asymptomatic complete heart block at some sleeping hours as well as some asymptomatic nonsustained VT.? For that he was placed on metoprolol.? He noticed in rehab he has been getting symptoms of significantly worsening exertional shortness of breath.? His ability to exercise for rehab has significantly declined recently and for that reason he was sent to the emergency room yesterday.? He was found to have a moderate size right pleural effusion as well as a small left pleural effusion and was admitted for further evaluation and treatment.? Patient's symptoms improved slightly with IV diuresis, he is not requiring oxygen at this point but still orthopneic. 09/22/23 Admitted, he was placed on Lasix, Metoprolol; will undergo a right sided thoracentesis, supplemental oxygen Resume Metoprolol, May need to stop Pioglitazone at discharge due to fluid overload. Time Spent With Patient Time with patient: 25 - 35 minutes Subjective Date/time seen: 09/22/23 13:59 Interval history: Seen and examined; being managed for shortness of breath with CHF Review of Systems Review of Systems: All systems reviewed & are unremarkable except as noted in HPI and below Constitutional: Constitutional: Reports no additional constitutional complaints Eyes: Eyes: Reports no additional eye complaints ENT: Reports system reviewed and no additional complaints, except as documented Cardiovascular: Cardiovascular: Reports chest pain Respiratory: Respiratory: Reports dyspnea Gastrointestinal: Gastrointestinal: Reports no additional gastrointestinal complaints Genitourinary: Genitourinary: Reports no additional male genitourinary complaints Musculoskeletal: Musculoskeletal: Reports no additional musculoskeletal complaints Integumentary/Breasts: Skin/Breast: Reports system reviewed and no additional complaints, except as docu Neurologic: Reports system reviewed and no additional complaints, exc
[2023-09-22] MEDS: LORazepam (*CRX) 0.5 MG TABLET PO ×2 (14:09→20:41)
[2023-09-22] MEDS: PROCHLORPERAZINE EDISYLATE 10 MG/2 ML VIAL 5 MG IV PUSH (14:09)
[2023-09-22] MEDS: allopurinoL 300 MG TABLET PO (17:59)
[2023-09-22 19:51] LABS: Glucose Point of Care 174 mg/dl (65-105)
[2023-09-22] MEDS: ATORVASTATIN 40 MG TABLET PO (20:41)
[2023-09-23] VITALS (19 sets, daily range): BP systolic 118–154; BP diastolic 62–78; PULSE 71–93; RESP 18–22; TEMP 35.6–36.6; O2SAT 93–94
[2023-09-23 05:01] LABS: Basophils Absolute Auto 0.1 K/mm3 (0.0-0.1); Eosinophils Percent Auto 0.1 % (0-4.4); Hematocrit 36.9 % (42.0-52.0); Hemoglobin 11.5 g/dL (14.0-18.0); Immature Granulocyte Absolute 0.03 K/mm3 (0.00-0.031); Immature Granulocyte Percent A 0.3 % (0-0.5); Lymphocytes Percent Auto 33.6 % (18.3-44.2); Mean Corpuscular HGB Conc 31.2 g/dl (32-36); Mean Corpuscular Volume 96.3 fl (80-100); Mean Platelet Volume 9.5 fl (7.4-10.4); Monocytes Absolute Auto 0.9 K/mm3 (0.1-0.6); Monocytes Percent Auto 8.8 % (2.6-8.5); Neutrophils Absolute Auto 5.9 K/mm3 (1.3-6.7); Neutrophils Percent Auto 56.2 % (45.5-73.1); Platelet Count Result 251 k/mm3 (150-375); Red Blood Count 3.83 M/mm3 (4.6-6.20); Red Cell Distribution Width 15.4 % (11.5-14.5); White Blood Count 10.4 K/mm3 (4.5-10.0)
[2023-09-23 05:15] LABS: Alanine Aminotransferase 21 U/L (6-50); Albumin Level 3.6 g/dL (3.5-5.1); Alkaline Phosphatase 236 U/L (38-126); Anion Gap 8 mmol/L (8-16); Aspartate Amino Transferase 40 U/L (17-59); Bilirubin,Total 0.9 mg/dL (0.2-1.3); Blood Urea Nitrogen 16 mg/dL (9-20); Calcium 9.3 mg/dL (8.4-10.2); Carbon Dioxide 27 mmol/L (22-30); Chloride 103 mmol/L (98-107); Estimated CRCL calculation 60 ml/min; Estimated Glomerular Filt Rate > 60; Glucose 115 mg/dL (65-110); Potassium 3.5 mmol/L (3.4-5.0); Sodium 138 mmol/L (137-145)
[2023-09-23 07:44] LABS: Glucose Point of Care 169 mg/dl (65-105)
[2023-09-23] MEDS: MULTIVITAMINS THERAPEUTIC TAB (*BKC) 1 TABLET PO (09:35)
[2023-09-23] MEDS: METOPROLOL SUCCINATE EXT REL 50 MG TABCR PO (09:35)
[2023-09-23] MEDS: ASPIRIN 81 MG ENTERIC TABLET PO (09:36)
[2023-09-23] MEDS: FUROSEMIDE INJ 40 MG/4 ML VIAL IV PUSH ×2 (09:36→18:33)
[2023-09-23 11:39] LABS: Glucose Point of Care 175 mg/dl (65-105)
[2023-09-23] MEDS: TAMSULOSIN HCL 0.4 MG CAPSULE PO (12:23)
--- NOTE | 2023-09-23 13:02 | PM.PNCARD ---
Progress Note: A&P Assessment and Plan (1) Pleural effusion: Code(s): J90 - Pleural effusion, not elsewhere classified Status: Acute (2) Hx of CABG: Code(s): Z95.1 - Presence of aortocoronary bypass graft Status: Acute (3) H/O aortic valve replacement with tissue graft: Code(s): Z95.4 - Presence of other heart-valve replacement Status: Acute Plan 73-year-old man with: Coronary disease valvular heart disease recent bypass surgery and bioprosthetic aortic valve replacement. He is experiencing shortness of breath and has a sizable right pleural effusion and a small left pleural effusion. This is likely a postop effusion rather than evidence of congestive heart failure. Xarelto has been stopped all on admission. Will plan to have Radiology to tap the right pleural effusion tomorrow for symptomatic benefit. Will keep IV furosemide going for now. Patient would like to be discharged tomorrow if he is doing well following thoracentesis. This effusion needs to be followed up as an outpatient spoke to the patient and his that if this becomes a recurring problem sometimes pleurodesis needs to be considered Negrito Burnett MD [facility] Subjective Date/time seen: Date of service: 09/23/23 13:02 Interval history: Follow-up visit in this 73-year-old man with: Valvular heart disease/coronary artery disease status post recent CABG and bioprosthetic aortic valve replacement at [facility]. Patient admitted to the hospital with shortness of breath and has a sizable right pleural effusion and a small left pleural effusion. He was given the diagnosis of congestive heart failure which I am not sure is accurate since he does not have any left ventricular systolic dysfunction and his aortic valve prosthesis is expected to be functioning normally this soon postop. He has been placed on some intravenous furosemide which is resulting in some mild symptomatic improvement. He had been anticoagulated with Xarelto prior to coming in the hospital. This has been stopped in anticipation of thoracentesis Exam Const: General: comfortable Other: Pleasant gentleman appearing his stated age appears weak but otherwise in no distress HENMT: Mouth: Yes moist mucous membranes Eyes: Sclera: sclerae normal Neck: Neck: supple and no JVD Resp: Effort & Inspection: normal respiratory effort Other: Dull at the right mid lung field bases with sizable pleural effusion by exam Cardio: Rate: regular rate Rhythm: regular rhythm Other: Soft systolic murmur at the base without radiation no diastolic murmur GI: GI Palp: Yes Soft to palpation Auscultation: normal bowel sounds Skin: General skin exam: normal color Neuro: Other: Alert and oriented x3 Extrem: Other: Good perfusion Objective Data Vital Signs Vital Signs: Vital Signs - 24 hr 09/22/23 14:00 09/22/23 16:38 09/22/23 16:00 Temperature 35.8 C L Pulse Rate 90 73 75 Respiratory Rate 20 Blood Pressure 138/79 Pulse Oximetry 92 Oxygen Delivery 09/22/23 18:00 09/22/23 16:00 09/22/23 20:06 Temperature 36.4 C L Pulse Rate 93 84 Respiratory Rate 20 Blood Pressure 112/58 L Pulse Oximetry 93 Oxygen Delivery Room Air 09/22/23 20:00 09/22/23 23:19 09/22/23 23:30 Temperature 36.1 C L Pulse Rate 76 Respiratory Rate 20 Blood Pressure 145/85 H Pulse Oximetry 97 Oxygen Delivery Room Air CPAP 09/22/23 20:00 09/22/23 22:00 09/23/23 00:00 Temperature Pulse Rate 86 72 72 Respiratory Rate Blood Pressure Pulse Oximetry Oxygen Delivery 09/23/23 02:00 09/23/23 04:00 09/23/23 04:30 Temperature Pulse Rate 71 72 Respiratory Rate Blood Pressure Pulse Oximetry Oxygen Delivery Room Air 09/23/23 05:41 09/23/23 06:00 09/23/23 07:55 Temperature 36.6 C 35.7 C L Pulse Rate 88 84 76 Respiratory Rate 20 18 Blood Pressure
--- NOTE | 2023-09-23 13:03 | PM.IMPN ---
Progress Note: A&P Assessment and Plan (1) Pleural effusion: Code(s): J90 - Pleural effusion, not elsewhere classified Status: Acute Assessment and Plan: Right sided thoracentesis planned for today, 09/22/23 (2) Acute CHF (congestive heart failure): Code(s): I50.9 - Heart failure, unspecified Status: Acute Assessment and Plan: Lasix; I/O; (3) Hx of CABG: Code(s): Z95.1 - Presence of aortocoronary bypass graft Status: Acute (4) H/O aortic valve replacement with tissue graft: Code(s): Z95.4 - Presence of other heart-valve replacement Status: Acute (5) HLD (hyperlipidemia): Qualifiers: Hyperlipidemia type: mixed hyperlipidemia Qualified Code(s): E78.2 - Mixed hyperlipidemia Code(s): E78.5 - Hyperlipidemia, unspecified Status: Acute (6) HTN (hypertension): Qualifiers: Hypertension type: essential hypertension Qualified Code(s): I10 - Essential (primary) hypertension Code(s): I10 - Essential (primary) hypertension Status: Acute Plan Jordon Randall is a 73 yo M who presented to the ED with shortness of breath. He was found to have some moderate distal left main disease and was referred to cardiothoracic surgeon at [facility] for consultation.? His aortic valve stenosis was in the moderate to severe range at that time as well he underwent coronary bypass grafting and aortic valve replacement at [facility].? He received a internal mammary graft to the LAD, a sequence saphenous vein graft to the OM and the posterolateral branch of the RCA.? He then also received a Magna ease 25 mm bioprosthetic aortic valve.? His postoperative recovery was relatively uncomplicated he did have some postop atrial fibrillation he was been followed by the heart surgeon as well as the arrhythmia Center at [facility] after his recent discharge.? In addition to postop atrial fibrillation his outpatient Holter monitors have demonstrated some episodes of asymptomatic complete heart block at some sleeping hours as well as some asymptomatic nonsustained VT.? For that he was placed on metoprolol.? He noticed in rehab he has been getting symptoms of significantly worsening exertional shortness of breath.? His ability to exercise for rehab has significantly declined recently and for that reason he was sent to the emergency room yesterday.? He was found to have a moderate size right pleural effusion as well as a small left pleural effusion and was admitted for further evaluation and treatment.? Patient's symptoms improved slightly with IV diuresis, he is not requiring oxygen at this point but still orthopneic. 09/22/23 Admitted, he was placed on Lasix, Metoprolol; will undergo a right sided thoracentesis, supplemental oxygen Resume Metoprolol, May need to stop Pioglitazone at discharge due to fluid overload. 09/23/23: Improved breathing; Thoracentesis tomorrow Time Spent With Patient Time with patient: 25 - 35 minutes Subjective Date/time seen: 09/23/23 13:03 Interval history: Seen and examined; being managed for shortness of breath with CHF He denies fresh concerns; on Xarelto, hoping to undergo thoracentesis tomorrow. Review of Systems Review of Systems: All systems reviewed & are unremarkable except as noted in HPI and below Constitutional: Constitutional: Reports no additional constitutional complaints Eyes: Eyes: Reports no additional eye complaints ENT: Reports system reviewed and no additional complaints, except as documented Cardiovascular: Cardiovascular: Reports chest pain and Reports dyspnea Respiratory: Respiratory: Reports dyspnea Gastrointestinal: Gastrointestinal: Reports no additional gastrointestinal complaints Genitourinary: Genitourinary: Reports no additional male genitourinary complaints Musculoskeletal: Musculoskeletal: Reports no additional musculoskeletal complaints Integumentary/Breas
[2023-09-23 16:50] LABS: Glucose Point of Care 151 mg/dl (65-105)
[2023-09-23] MEDS: allopurinoL 300 MG TABLET PO (18:33)
[2023-09-23 20:19] LABS: Glucose Point of Care 152 mg/dl (65-105)
[2023-09-23] MEDS: LORazepam (*CRX) 0.5 MG TABLET PO (20:32)
[2023-09-23] MEDS: ATORVASTATIN 40 MG TABLET PO (20:32)
[2023-09-24] VITALS (20 sets, daily range): BP systolic 110–145; BP diastolic 66–79; PULSE 71–100; RESP 18–20; TEMP 36.1–36.9; O2SAT 92–98
--- NOTE | 2023-09-24 | ECHO_ITS ---
Patient Info Name: Jordon Randall Age: 73 years : 1950 Gender: Male Ht: 70 in Wt: 204 lbs BSA: 2.16 m2 HR: 72 bpm BP: 145 / 79 mmHg Heart Rhythm: Sinus Rhythm Technical Quality: Fair Exam Date: 09/24/2023 1:44 PM Exam Location: Echo Lab Patient Status: Inpatient Admit Date: 09/23/2023 Staff Ordering Physician: Kalpana Larsen PA-C Occupational Medicine Specialist: Elma Weinberg RDCS Attending Provider: May Ibrahim MD Referring Physician: Chava SALDANA; Exam Type: CA echo dop color flow w con Study Info Indications - New onset CHF, Post CABG Complete two-dimensional, color flow and Doppler transthoracic echocardiogram is performed with contrast to opacify the left ventricle and to improve the deliniation of the left ventricle endocardial borders. Contrast/Agitated Saline Contrast/Ag. Saline: Definity Amount: 2.00 ml Administered By: Elma Weinberg RDCS Existing IV Access: Yes IV Access Condition: patent with no signs of infiltration Summary 1. Technically difficult study with limited views. Definity contrast administered. 2. Preserved prosthetic aortic valve hemodynamics. 3. There is no significant regurgitation of the prosthetic aortic valve. 4. Left ventricular chamber dimension is normal. 5. Left ventricular systolic function is hyperdynamic, estimated at >70%. 6. There is mildly increased left ventricular wall thickness. 7. The left ventricular diastolic function is grade I diastolic dysfunction. 8. The prosthetic aortic valve is not well visualized. 9. There is trace tricuspid valve regurgitation. 10. No pulmonary hypertension, estimated pulmonary arterial systolic pressure is 31 mmHg. Left Ventricle Technically difficult study with limited views. Definity contrast administered. Left ventricular chamber dimension is normal. Left ventricular systolic function is hyperdynamic, estimated at >70%. There is mildly increased left ventricular wall thickness. The left ventricular diastolic function is grade I diastolic dysfunction. Right Ventricle Right ventricular chamber dimension is normal. Right ventricular systolic function is normal. Left Atria Left atrial chamber dimension is mildly enlarged. Right Atria Right atrial chamber dimension is normal. Aortic Valve There is no significant regurgitation of the prosthetic aortic valve. Preserved prosthetic aortic valve hemodynamics. The prosthetic aortic valve is not well visualized. Pulmonic Valve The pulmonic valve is not well visualized. Mitral Valve The mitral valve has thickened leaflets. There is trace mitral valve regurgitation. The mitral valve annulus is mildly calcified. Tricuspid Valve The tricuspid valve leaflets are normal. There is trace tricuspid valve regurgitation. No pulmonary hypertension, estimated pulmonary arterial systolic pressure is 31 mmHg. Pericardium/Pleural The pericardium appears normal. There is small pericardial effusion. Inferior Vena Cava Normal inferior vena cava with >50% collapse upon inspiration consistent with normal right atrial pressure, 5 mmHg. Aorta The aortic root size at the sinus of Valsalva is normal. There is mild aortic atherosclerosis. Left Ventricular Outflow Tract Name Value Normal LVOT 2D LVOT Diameter
[2023-09-24 04:44] LABS: Basophils Absolute Auto 0.1 K/mm3 (0.0-0.1); Basophils Percent Auto 0.8 % (0.2-1.2); Hematocrit 35.7 % (42.0-52.0); Hemoglobin 11.4 g/dL (14.0-18.0); Immature Granulocyte Absolute 0.02 K/mm3 (0.00-0.031); Immature Granulocyte Percent A 0.2 % (0-0.5); Lymphocytes Absolute Auto 3.22 K/mm3 (0.9-3.2); Lymphocytes Percent Auto 33.1 % (18.3-44.2); Mean Corpuscular HGB Conc 31.9 g/dl (32-36); Mean Corpuscular Hemoglobin 30.5 pg (26-34); Mean Corpuscular Volume 95.5 fl (80-100); Mean Platelet Volume 9.4 fl (7.4-10.4); Monocytes Absolute Auto 0.9 K/mm3 (0.1-0.6); Monocytes Percent Auto 8.7 % (2.6-8.5); Neutrophils Absolute Auto 5.6 K/mm3 (1.3-6.7); Neutrophils Percent Auto 57.2 % (45.5-73.1); Platelet Count Result 253 k/mm3 (150-375); Red Blood Count 3.74 M/mm3 (4.6-6.20); Red Cell Distribution Width 15.2 % (11.5-14.5); White Blood Count 9.7 K/mm3 (4.5-10.0)
[2023-09-24 05:05] LABS: Alanine Aminotransferase 20 U/L (6-50); Albumin Level 3.4 g/dL (3.5-5.1); Alkaline Phosphatase 221 U/L (38-126); Anion Gap 4 mmol/L (8-16); Aspartate Amino Transferase 38 U/L (17-59); Bilirubin,Total 0.9 mg/dL (0.2-1.3); Blood Urea Nitrogen 18 mg/dL (9-20); Calcium 9.1 mg/dL (8.4-10.2); Carbon Dioxide 29 mmol/L (22-30); Chloride 101 mmol/L (98-107); Estimated CRCL calculation 61 ml/min; Estimated Glomerular Filt Rate > 60; Glucose 122 mg/dL (65-110); Potassium 3.3 mmol/L (3.4-5.0); Sodium 134 mmol/L (137-145)
[2023-09-24 07:50] LABS: Glucose Point of Care 135 mg/dl (65-105)
[2023-09-24] MEDS: METOPROLOL SUCCINATE EXT REL 50 MG TABCR PO (08:34)
[2023-09-24] MEDS: ASPIRIN 81 MG ENTERIC TABLET PO (08:34)
[2023-09-24] MEDS: MULTIVITAMINS THERAPEUTIC TAB (*BKC) 1 TABLET PO (08:35)
[2023-09-24] MEDS: FUROSEMIDE INJ 40 MG/4 ML VIAL IV PUSH ×2 (08:52→18:14)
[2023-09-24 10:49] LABS: INR 1.3
[2023-09-24 10:50] LABS: Partial Thromboplastin Time 39.2 SECONDS (22.3-36.8)
--- NOTE | 2023-09-24 11:13 | PM.IMPN ---
Progress Note: A&P Assessment and Plan (1) Pleural effusion: Code(s): J90 - Pleural effusion, not elsewhere classified Status: Acute Assessment and Plan: Right sided thoracentesis planned for today, 09/22/23 (2) Acute CHF (congestive heart failure): Code(s): I50.9 - Heart failure, unspecified Status: Acute Assessment and Plan: Lasix; I/O; (3) Hx of CABG: Code(s): Z95.1 - Presence of aortocoronary bypass graft Status: Acute (4) H/O aortic valve replacement with tissue graft: Code(s): Z95.4 - Presence of other heart-valve replacement Status: Acute (5) HLD (hyperlipidemia): Qualifiers: Hyperlipidemia type: mixed hyperlipidemia Qualified Code(s): E78.2 - Mixed hyperlipidemia Code(s): E78.5 - Hyperlipidemia, unspecified Status: Acute (6) HTN (hypertension): Qualifiers: Hypertension type: essential hypertension Qualified Code(s): I10 - Essential (primary) hypertension Code(s): I10 - Essential (primary) hypertension Status: Acute Plan Jordon Randall is a 73 yo M who presented to the ED with shortness of breath. He was found to have some moderate distal left main disease and was referred to cardiothoracic surgeon at [facility] for consultation.? His aortic valve stenosis was in the moderate to severe range at that time as well he underwent coronary bypass grafting and aortic valve replacement at [facility].? He received a internal mammary graft to the LAD, a sequence saphenous vein graft to the OM and the posterolateral branch of the RCA.? He then also received a Magna ease 25 mm bioprosthetic aortic valve.? His postoperative recovery was relatively uncomplicated he did have some postop atrial fibrillation he was been followed by the heart surgeon as well as the arrhythmia Center at [facility] after his recent discharge.? In addition to postop atrial fibrillation his outpatient Holter monitors have demonstrated some episodes of asymptomatic complete heart block at some sleeping hours as well as some asymptomatic nonsustained VT.? For that he was placed on metoprolol.? He noticed in rehab he has been getting symptoms of significantly worsening exertional shortness of breath.? His ability to exercise for rehab has significantly declined recently and for that reason he was sent to the emergency room yesterday.? He was found to have a moderate size right pleural effusion as well as a small left pleural effusion and was admitted for further evaluation and treatment.?Patient's symptoms improved slightly with IV diuresis, he is not requiring oxygen at this point but still orthopneic. Right pleural effusion Unclear etiology. CTA shows no PE, chest x-ray today showed moderate right-sided pleural effusion and small left pleural effusion Echocardiogram pending Continue Lasix IV Sales Team Member on board Consult principal mechanical engineer for evaluation treatment Order ultrasound-guided right pleural centesis, follow-up g stain, culture, chemistry, cytology atrial fibrillation Admitted, he was placed on Lasix, Metoprolol; undergo a right sided thoracentesis, supplemental oxygen Resume Metoprolol, May need to stop Pioglitazone at discharge due to fluid overload. Subjective Date/time seen: 09/24/23 11:13 Interval history: I saw exam patient today, patient still has some shortness breath at rest, denies chest pain, abdomen pain. No new issue even overnight Exam Narrative: GENERAL: Well-appearing, well-nourished, and in no acute distress. HEAD: Normocephalic, atraumatic. EYES: PERRLA and EOMI. ENT: Nares clear, no rhinorrhea or epistaxis. Mucous membranes moist. NECK: Supple. CHEST:? No respiratory distress, decrease in breath sound bilaterally on both lung bases, R > L CABG incision healing wound without surrounding erythema, edema or fluctuation HEART: Regular rate and rhythm. No murmur heard. Normal peripheral pulses. ABD
[2023-09-24 11:36] LABS: Glucose Point of Care 128 mg/dl (65-105)
[2023-09-24 12:22] LABS: Glucose 141 mg/dL (65-110); Lactate Dehydrogenase 284 U/L (120-246); Triglycerides 121 mg/dL (<150)
[2023-09-24] MEDS: PERFLUTREN LIPID MICROSPHERES 1.5 ML VIAL DILUTED TO 10 ML TOTAL VOLUME IV PUSH (13:49)
--- NOTE | 2023-09-24 14:17 | PM.CNPUL ---
Assessment and Plan Assessment and plan (1) Pleural effusion: Code(s): J90 - Pleural effusion, not elsewhere classified Status: Acute Assessment and Plan: underwent a CABG on 08/16/2023. Patient did well postoperatively and had multiple PVCs. Outpatient monitoring showed 1% atrial fibrillation and he was started on Xarelto. He was improving at home walking 10 minutes 3 times a day. Over the last 7 days the patient had worsening shortness of breath and could only walk 8 minutes 3 times a day. It was recommended he go to the emergency room and had a CT angiogram of the chest was negative for pulmonary emboli but he had a moderate-sized right and small left pleural effusion. BNP was 545. Chest x-ray on 05/23/2023 showed no pleural effusions and no sternal wires. 09/24/2023: Patient denies fever, chills, rigors, cough, hemoptysis, chest pain, sternal pain or drainage. Currently is on room air with saturations 95%. Xarelto has been held in the hospital. I suspect patient's right pleural effusion is related to his CABG on 08/16/2023. Fluid overload may also be contributing to his clinical symptoms. There is no clinical evidence of a bacterial infection at this time. Plan: Agree with right thoracentesis and will send full chemistries, cell count, bacterial, fungal AFB smear and cultures and cytology. From a pulmonary perspective if patient tolerates his thoracentesis well later today, he can be discharged with cardiology follow-up to determine if his right pleural effusion will recur. If there is a recurrence after this thoracentesis would refer him back to cardiothoracic surgery for further evaluation. Discussed with Dr. Mensah, will follow with you. (2) ARNOLD on CPAP: Code(s): G47.33 - Obstructive sleep apnea (adult) (pediatric); Z99.89 - Dependence on other enabling machines and devices Status: Acute Assessment and Plan: Regarding his obstructive sleep apnea the patient has a BMI of 30.1 and had a sleep study approximately 6 years ago and believes he is on CPAP 10. He uses his home CPAP machine through [facility] with a nasal mask every night and says he sleeps well with this. He says he can sleep laying down if he does not wear his machine. He does not formally follow with a doctor who examines his downloads. He denies daytime hypersomnia. 09/24/23: Our staff as called [facility] who told us the patient has not been service since 2021 and they will try to provide us with additional data. Plan: Continue patient on his home CPAP unit and room air. If he remains in the hospital tonight, I will check an overnight oximetry on his home machine and room air tonight. Awaited download from [facility] to assess his compliance. Patient can follow-up with us in the Pulmonary Clinic as an outpatient for his obstructive sleep apnea. If he is here in the morning I have ordered a TSH and free T4. History of Present Illness History of Present Illness Consult date: 09/24/23 Chief complaint: new onset chf Narrative: 09/24/2023: This is a new pulmonary consult for right pleural effusion. 73-year-old with a history of psoriatic arthritis, coronary artery disease status post CABG on 08/16/2023, postoperative atrial fibrillation on Xarelto, obstructive sleep apnea on home CPAP for 6 years. Regarding his psoriatic arthritis the patient has hand deformities and has been on multiple injection of more medicines the last of which currently is taken [place] every 8 weeks. This controls his arthritic pain. Regarding his obstructive sleep apnea the patient had a sleep study approximately 6 years ago and believes he is on CPAP 10. He uses his home CPAP machine through [facility] with a nasal mask every night and says he sleeps well with this. He says he can sleep laying down if he does not wear his machine. He does not formally follow with a doctor who examines his downloads. He denies daytime hyper
--- NOTE | 2023-09-24 14:25 | PC.NURSE ---
Patient off floor to Ultrasound for thoracentesis.
--- NOTE | 2023-09-24 15:17 | PC.NURSE ---
Patient back in room without issue.
[2023-09-24 15:33] LABS: pH Pleural Fluid > 7.500 (7.210-7.500)
[2023-09-24] MEDS: TAMSULOSIN HCL 0.4 MG CAPSULE PO (16:04)
--- NOTE | 2023-09-24 16:10 | IVDEFINITY ---
Prior to administration of IV Definity the patient was educated on the risks and benefits of the imaging enhancing agent including potential adverse side effects. The patient verbalized understanding. Allergies were verified. No exclusion criteria were identified and at least one of the following inclusion criteria were met: 1) physician request, 2) patient technically difficult to image (per the [place] [employer] guidelines of two or more segments not discernable within the apical view), or 3) questionable left ventricular function. ?
[2023-09-24 16:38] LABS: Glucose Point of Care 137 mg/dl (65-105)
[2023-09-24 17:41] LABS: Pleural fluid source Pleural fluid
[2023-09-24 17:42] LABS: Appearance Pleural Fluid Bloody (Clear); Color Pleural Fluid Red (Colorless); Neutrophils Pleural Fluid 9 % (0-25)
[2023-09-24 17:43] LABS: Lymphocytes Pleural Fluid 81 %; Macrophages Pleural Fluid 1 %; Mesothelial Cells Pleural Flui 3 %; Monocytes Pleural Fluid 6 %
[2023-09-24] MEDS: allopurinoL 300 MG TABLET PO (18:24)
[2023-09-24 19:58] LABS: Glucose Point of Care 276 mg/dl (65-105)
[2023-09-24] MEDS: ATORVASTATIN 40 MG TABLET PO (20:30)
[2023-09-24] MEDS: INSULIN ASPART (*BKC) 100 UNITS/ML SUB-Q (20:31)
[2023-09-24] MEDS: INSULIN GLARGINE (*BKC) 100 UNITS/ML 19 UNITS SUB-Q (20:31)
[2023-09-24] MEDS: LORazepam (*CRX) 0.5 MG TABLET PO (20:40)
[2023-09-25] VITALS (15 sets, daily range): BP systolic 103–121; BP diastolic 51–69; PULSE 72–92; RESP 18–20; TEMP 35.7–36.4; O2SAT 92–98
[2023-09-25 05:32] LABS: Basophils Absolute Auto 0.1 K/mm3 (0.0-0.1); Hematocrit 36.9 % (42.0-52.0); Hemoglobin 11.8 g/dL (14.0-18.0); Immature Granulocyte Absolute 0.03 K/mm3 (0.00-0.031); Immature Granulocyte Percent A 0.3 % (0-0.5); Lymphocytes Percent Auto 38.5 % (18.3-44.2); Mean Corpuscular Volume 93.9 fl (80-100); Mean Platelet Volume 9.3 fl (7.4-10.4); Monocytes Absolute Auto 0.9 K/mm3 (0.1-0.6); Monocytes Percent Auto 8.7 % (2.6-8.5); Neutrophils Absolute Auto 5.1 K/mm3 (1.3-6.7); Neutrophils Percent Auto 51.5 % (45.5-73.1); Platelet Count Result 278 k/mm3 (150-375); Red Blood Count 3.93 M/mm3 (4.6-6.20); Red Cell Distribution Width 15.1 % (11.5-14.5); White Blood Count 9.9 K/mm3 (4.5-10.0)
[2023-09-25 05:46] LABS: Alanine Aminotransferase 27 U/L (6-50); Albumin Level 3.8 g/dL (3.5-5.1); Alkaline Phosphatase 243 U/L (38-126); Anion Gap 6 mmol/L (8-16); Aspartate Amino Transferase 51 U/L (17-59); Bilirubin,Total 1.1 mg/dL (0.2-1.3); Blood Urea Nitrogen 21 mg/dL (9-20); Calcium 9.2 mg/dL (8.4-10.2); Carbon Dioxide 29 mmol/L (22-30); Chloride 101 mmol/L (98-107); Estimated CRCL calculation 61 ml/min; Estimated Glomerular Filt Rate > 60; Glucose 121 mg/dL (65-110); Potassium 3.3 mmol/L (3.4-5.0); Sodium 136 mmol/L (137-145)
[2023-09-25 06:08] LABS: Free T4 Free Thyroxine 1.55 ng/mL (0.78-2.19)
[2023-09-25 08:03] LABS: Glucose Point of Care 122 mg/dl (65-105)
[2023-09-25] MEDS: ASPIRIN 81 MG ENTERIC TABLET PO (08:53)
[2023-09-25] MEDS: METOPROLOL SUCCINATE EXT REL 50 MG TABCR PO (08:53)
[2023-09-25] MEDS: MULTIVITAMINS THERAPEUTIC TAB (*BKC) 1 TABLET PO (08:53)
[2023-09-25] MEDS: FUROSEMIDE INJ 40 MG/4 ML VIAL IV PUSH (08:54)
--- NOTE | 2023-09-25 10:07 | PM.IMPN ---
Progress Note: A&P Assessment and Plan (1) Pleural effusion: Code(s): J90 - Pleural effusion, not elsewhere classified Status: Acute Assessment and Plan: Right sided thoracentesis planned for today, 09/22/23 (2) Acute CHF (congestive heart failure): Code(s): I50.9 - Heart failure, unspecified Status: Acute Assessment and Plan: Lasix; I/O; (3) Hx of CABG: Code(s): Z95.1 - Presence of aortocoronary bypass graft Status: Acute (4) H/O aortic valve replacement with tissue graft: Code(s): Z95.4 - Presence of other heart-valve replacement Status: Acute (5) HLD (hyperlipidemia): Qualifiers: Hyperlipidemia type: mixed hyperlipidemia Qualified Code(s): E78.2 - Mixed hyperlipidemia Code(s): E78.5 - Hyperlipidemia, unspecified Status: Acute (6) HTN (hypertension): Qualifiers: Hypertension type: essential hypertension Qualified Code(s): I10 - Essential (primary) hypertension Code(s): I10 - Essential (primary) hypertension Status: Acute Plan Jordon Randall is a 73 yo M who presented to the ED with shortness of breath. He was found to have some moderate distal left main disease and was referred to cardiothoracic surgeon at [facility] for consultation.? His aortic valve stenosis was in the moderate to severe range at that time as well he underwent coronary bypass grafting and aortic valve replacement at [facility].? He received a internal mammary graft to the LAD, a sequence saphenous vein graft to the OM and the posterolateral branch of the RCA.? He then also received a Magna ease 25 mm bioprosthetic aortic valve.? His postoperative recovery was relatively uncomplicated he did have some postop atrial fibrillation he was been followed by the heart surgeon as well as the arrhythmia Center at [facility] after his recent discharge.? In addition to postop atrial fibrillation his outpatient Holter monitors have demonstrated some episodes of asymptomatic complete heart block at some sleeping hours as well as some asymptomatic nonsustained VT.? For that he was placed on metoprolol.? He noticed in rehab he has been getting symptoms of significantly worsening exertional shortness of breath.? His ability to exercise for rehab has significantly declined recently and for that reason he was sent to the emergency room yesterday.? He was found to have a moderate size right pleural effusion as well as a small left pleural effusion and was admitted for further evaluation and treatment.?Patient's symptoms improved slightly with IV diuresis, he is not requiring oxygen at this point but still orthopneic. Right pleural effusion Unclear etiology. CTA shows no PE, chest x-ray today showed moderate right-sided pleural effusion and small left pleural effusion Echocardiogram pending Continue Lasix IV Railcar Foreman on board Consult aircraft motor mechanic for evaluation treatment Ordered ultrasound-guided right pleural centesis, follow-up g stain, culture, chemistry, cytology, Gram stain showed MANY WHITE CELLS NO ORGANISMS SEEN Appreciate consultations from reinforcing iron worker helper and aircraft motor mechanic, repeat chest x-ray today: [id number] bilateral pleural effusions. Switch from furosemide 40 mg b.i.d. IV to oral Lasix 40 mg daily p.o., resume Xarelto p.o. atrial fibrillation Admitted, he was placed on Lasix, Metoprolol; undergo a right sided thoracentesis, supplemental oxygen Resume Metoprolol, CAD status post CABG, aortic wall stenosis status post bioprosthetic aortic valve Patient denies chest pain Patient is on aspirin 81 mg daily p.o., metoprolol 50 mg daily p.o., Xarelto 20 mg daily p.o. Type 2 diabetes Receive insulin Lantus and sliding scale during hospitalization Resume home medication Follow-up with primary care doctor for dressing medication Subjective Date/time seen: 09/25/23 10:07 Interval history: I saw exam patient today, douglas
--- NOTE | 2023-09-25 10:12 | PM.PNPUL ---
Progress Note: A&P Assessment and Plan (1) Pleural effusion: Code(s): J90 - Pleural effusion, not elsewhere classified Status: Acute Assessment and Plan: underwent a CABG on 08/16/2023. Patient did well postoperatively and had multiple PVCs. Outpatient monitoring showed 1% atrial fibrillation and he was started on Xarelto. He was improving at home walking 10 minutes 3 times a day. Over the last 7 days the patient had worsening shortness of breath and could only walk 8 minutes 3 times a day. It was recommended he go to the emergency room and had a CT angiogram of the chest was negative for pulmonary emboli but he had a moderate-sized right and small left pleural effusion. BNP was 545. Chest x-ray on 05/23/2023 showed no pleural effusions and no sternal wires. 09/24/2023: Patient denies fever, chills, rigors, cough, hemoptysis, chest pain, sternal pain or drainage. Currently is on room air with saturations 95%. Xarelto has been held in the hospital. I suspect patient's right pleural effusion is related to his CABG on 08/16/2023. Fluid overload may also be contributing to his clinical symptoms. There is no clinical evidence of a bacterial infection at this time. Plan: Agree with right thoracentesis and will send full chemistries, cell count, bacterial, fungal AFB smear and cultures and cytology. From a pulmonary perspective if patient tolerates his thoracentesis well later today, he can be discharged with cardiology follow-up to determine if his right pleural effusion will recur. If there is a recurrence after this thoracentesis would refer him back to cardiothoracic surgery for further evaluation. Later in the day the patient had a right thoracentesis with 1000 mL dark red rohan fluid removed. PH greater than 7.50. White blood cell count total was not performed. Differential neutrophils 9, lymphocytes 81%, monocytes 6%, macrophages 1%, mesothelial cells 3%. G stain showed many white blood cells and no organisms. Postprocedure chest x-ray showed improved right pleural effusion. Currently this represents a noninfectious lymphocytic effusion. 09/25/2023: The patient tells me that he after 1 hour from the thoracentesis he felt his breathing was better and could take deeper breaths. States he is breathing at 85% of his normal baseline. Denies fever, chills, rigors. Has a dry cough with a little bit of phlegm. No hemoptysis. Patient is on room air with saturations 94%. Chest x-ray this morning showed small bilateral effusions right greater than left, with no change compared to post thoracentesis. Plan: Patient is proved post thoracentesis and there was no rapid reaccumulation on chest x-ray this morning. Remainder of chemistries, microbiology and cytology results are pending. From a pulmonary perspective patient is ready to be discharged on these pulmonary medications: Home CPAP unit with 1 L bleed in. Oxygen per formal home O2 assessment which I have ordered. Follow-up in the Pulmonary Clinic in 3-4 weeks. I gave him our business card and informed our photography spotter. Discussed with Dr. Mensah, will sign off, call with questions (2) ARNOLD on CPAP: Code(s): G47.33 - Obstructive sleep apnea (adult) (pediatric); Z99.89 - Dependence on other enabling machines and devices Status: Acute Assessment and Plan: Regarding his obstructive sleep apnea the patient has a BMI of 30.1 and had a sleep study approximately 6 years ago and believes he is on CPAP 10. He uses his home CPAP machine through [facility] with a nasal mask every night and says he sleeps well with this. He says he can sleep laying down if he does not wear his machine. He does not formally follow with a doctor who examines his downloads. He denies daytime hypersomnia. 09/24/23: Our staff as called [facility] who told us the patient has not been service since 2021 and they will try to provide us with additional data. Plan: Continue patient
--- NOTE | 2023-09-25 11:42 | PM.PNCARD ---
Progress Note: A&P Assessment and Plan (1) Pleural effusion: Code(s): J90 - Pleural effusion, not elsewhere classified Status: Acute (2) Hx of CABG: Code(s): Z95.1 - Presence of aortocoronary bypass graft Status: Acute (3) H/O aortic valve replacement with tissue graft: Code(s): Z95.4 - Presence of other heart-valve replacement Status: Acute Plan 73-year-old man with: Coronary disease and valvular heart disease recent bypass surgery and bioprosthetic aortic valve replacement. He is experiencing shortness of breath and has a sizable right pleural effusion and a small left pleural effusion. This is likely a postop effusion rather than evidence of congestive heart failure. Echocardiogram shows normal LVEF, with appropriately functioning aortic valve prosthesis. Underwent thoracentesis with improvement. Will change IV Lasix to PO Lasix, patient to be on Lasix 40mg once daily upon discharge. Can resume Xarelto. Okay to discharge home from my standpoint. Patient has an appointment with Dr. Holly in October. Subjective Date/time seen: 09/25/23 11:42 Interval history: Follow-up visit in this 73-year-old man with: Valvular heart disease/coronary artery disease status post recent CABG and bioprosthetic aortic valve replacement at [facility]. Patient admitted to the hospital with shortness of breath and has a sizable right pleural effusion and a small left pleural effusion. He was given the diagnosis of congestive heart failure which I am not sure is accurate since he does not have any left ventricular systolic dysfunction and his aortic valve prosthesis is expected to be functioning normally this soon postop. He has been placed on some intravenous furosemide which is resulting in some mild symptomatic improvement. He had been anticoagulated with Xarelto prior to coming in the hospital. This has been stopped in anticipation of thoracentesis Date of service 09/25: Feeling better today after thoracentesis. On room air, no shortness of breath. CXR this morning with small bilateral effusions, right greater than left. Exam Const: General: comfortable and no acute distress HENMT: Mouth: Yes moist mucous membranes Eyes: General: appearance normal, both eyes and all related structures Sclera: sclerae normal Neck: Neck: supple Resp: Effort & Inspection: normal respiratory effort Other: Decreased breath sounds at the bases Cardio: Rate: regular rate Rhythm: regular rhythm Heart sounds: no murmurs Skin: General skin exam: normal color Neuro: Speech: normal speech Psych: Mental Status: mental status grossly normal Affect: normal affect Objective Data Vital Signs Vital Signs: Vital Signs - 24 hr 09/24/23 12:00 09/24/23 12:00 09/24/23 14:00 Temperature Pulse Rate 80 93 Respiratory Rate Blood Pressure Pulse Oximetry 95 Oxygen Delivery Room Air Oxygen Flow Rate Fraction of Inspired Oxygen 09/24/23 15:28 09/24/23 16:00 09/24/23 16:00 Temperature 36.9 C Pulse Rate 95 90 Respiratory Rate 20 Blood Pressure 110/70 Pulse Oximetry 97 98 Oxygen Delivery Room Air Oxygen Flow Rate Fraction of Inspired Oxygen 09/24/23 18:00 09/24/23 20:23 09/24/23 20:00 Temperature 36.6 C Pulse Rate 92 95 100 Respiratory Rate 20 Blood Pressure 121/70 Pulse Oximetry 93 Oxygen Delivery Oxygen Flow Rate Fraction of Inspired Oxygen 09/24/23 20:00 09/24/23 22:00 09/24/23 23:49 Temperature 36.5 C Pulse Rate 95 86 83 Respiratory Rate 20 20 Blood Pressure 120/67 Pulse Oximetry 93 92 Oxygen Delivery Room Air Oxygen Flow Rate Fraction of Inspired Oxygen 09/25/23 00:00 09/25/23 00:00 09/24/23 22:50 Temperature Pulse Rate 83 78 81 Respiratory Rate 20 Blood Pressure Pulse Oximetry 92 92 Oxygen Delivery CPAP CPAP Oxygen Flow Rate 0 Fraction of Inspired Oxygen
--- NOTE | 2023-09-25 12:01 | HOMEO2EVAL ---
Evaluation was performed at [facility] Home Oxygen Evaluation RC: Home Oxygen (O2) Evaluation Start: 09/25/23 10:22 Freq: ONCE Status: Active Protocol: RPE Activity Type Activity Date Activity User E-sign Co-sign Detail Recorded Client Recorded Date Recorded By Document 09/25/23 11:45 VASYL [email or web address] 09/25/23 12:01 VASYL Document 09/25/23 11:50 VASYL [email or web address] 09/25/23 12:01 VASYL Document 09/25/23 11:55 VASYL [email or web address] 09/25/23 12:01 VASYL 09/25/23 09/25/23 09/25/23 11:45 11:50 11:55 Home O2 Evaluation [Oxygen] -Test Phase Resting Exercise Resting -Oxygen Delivery Room Air Room Air Room Air [Pulse Oximetry] -Pulse Oximetry (90-100 %) 93 96 95 [Pulse Rate] -Pulse Rate (60-100 beats/min) 76 92 80 [Exercise] -Ambulation Distance (feet) 200 -Ambulation Distance (meters) 60.95 [Comments] -Home Oxygen Evaluation Comments NO HOME O2 NEEDED AT REST OF WITH ACTIVITY [Charges] -Evaluation Charges O2 Evaluation by Pulmonary
--- NOTE | 2023-09-25 12:02 | PCRCNOTE ---
HOME O2 EVAL DONE, NO HOME O2 NEEDED AT REST OR WITH ACTIVITY. SPOKE TO IV RESP CARE IN REGARDS TO CURRENT HOME CPAP MACHINE AND O2 BLEED IN. PT CANT HAVE OVERNIGHT OXIMETRY DONE IN HOME ON CPAP BECAUSE HE IS REQUIRED BY MEDICARE TO HAVE A FORMAL SLEEP STUDY WITH TITRATION TO ENSURE CURRENT CPAP PRESSURE ARE ADEQUATE WITH OR WITHOUT O2. HE DOES QUALIFY TO HAVE A NEW MACHINE, PROVIDED LAST FORMAL SLEEP STUDY IS OVER 5 YEARS AGO. THIS WOULD ENSURE HE CAN HAVE DOWNLOAD READILY AVAILABLE TO FOLLOW CARE WITH DOCTOR. OR HE CAN HAVE A CHIP PUT INTO HIS CURRENT MACHINE AND RETRIEVE ALL PRIOR COMPLIANCE DATA. DME REP WILL BE IN CONTACT WITH PT IN REGARDS TO THIS. PT TO FOLLOW DR CABRERA IN CLINIC IN 3 WEEKS.
[2023-09-25 12:05] LABS: Glucose Point of Care 185 mg/dl (65-105)
[2023-09-25] MEDS: TAMSULOSIN HCL 0.4 MG CAPSULE PO (12:19)
--- NOTE | 2023-09-25 12:54 | PM.DS ---
DS: Admitting Diagnosis Discharge Date 09/25/23 Admitting Diagnosis (1) Pleural effusion: ?Code(s): J90 - Pleural effusion, not elsewhere classified ?Status:?Acute ?Assessment and Plan: Right sided thoracentesis planned for today, 09/22/23 (2) Acute CHF (congestive heart failure): ?Code(s): I50.9 - Heart failure, unspecified ?Status:?Acute ?Assessment and Plan: Lasix; I/O; (3) Hx of CABG: ?Code(s): Z95.1 - Presence of aortocoronary bypass graft ?Status:?Acute (4) H/O aortic valve replacement with tissue graft: ?Code(s): Z95.4 - Presence of other heart-valve replacement ?Status:?Acute (5) HLD (hyperlipidemia): ?Qualifiers: ?Hyperlipidemia type:?mixed hyperlipidemia? Qualified Code(s):?E78.2 - Mixed hyperlipidemia ?Code(s): E78.5 - Hyperlipidemia, unspecified ?Status:?Acute (6) HTN (hypertension): ?Qualifiers: ?Hypertension type:?essential hypertension? Qualified Code(s):?I10 - Essential (primary) hypertension ?Code(s): I10 - Essential (primary) hypertension ?Status:?Acute DS: Discharge Diagnosis Discharge Diagnosis (1) Pleural effusion: Code(s): J90 - Pleural effusion, not elsewhere classified Status: Acute Assessment and Plan: Right sided thoracentesis planned for today, 09/22/23 (2) Acute CHF (congestive heart failure): Code(s): I50.9 - Heart failure, unspecified Status: Acute Assessment and Plan: Lasix; I/O; (3) Hx of CABG: Code(s): Z95.1 - Presence of aortocoronary bypass graft Status: Acute (4) H/O aortic valve replacement with tissue graft: Code(s): Z95.4 - Presence of other heart-valve replacement Status: Acute (5) HLD (hyperlipidemia): Qualifiers: Hyperlipidemia type: mixed hyperlipidemia Qualified Code(s): E78.2 - Mixed hyperlipidemia Code(s): E78.5 - Hyperlipidemia, unspecified Status: Acute (6) HTN (hypertension): Qualifiers: Hypertension type: essential hypertension Qualified Code(s): I10 - Essential (primary) hypertension Code(s): I10 - Essential (primary) hypertension Status: Acute DS: Summary Hospital Course Hospital Course: Jordon Randall is a 73 yo M who presented to the ED with shortness of breath. He was found to have some moderate distal left main disease and was referred to cardiothoracic surgeon at [facility] for consultation.? His aortic valve stenosis was in the moderate to severe range at that time as well he underwent coronary bypass grafting and aortic valve replacement at [facility].? He received a internal mammary graft to the LAD, a sequence saphenous vein graft to the OM and the posterolateral branch of the RCA.? He then also received a Magna ease 25 mm bioprosthetic aortic valve.? His postoperative recovery was relatively uncomplicated he did have some postop atrial fibrillation he was been followed by the heart surgeon as well as the arrhythmia Center at [facility] after his recent discharge.? In addition to postop atrial fibrillation his outpatient Holter monitors have demonstrated some episodes of asymptomatic complete heart block at some sleeping hours as well as some asymptomatic nonsustained VT.? For that he was placed on metoprolol.? He noticed in rehab he has been getting symptoms of significantly worsening exertional shortness of breath.? His ability to exercise for rehab has significantly declined recently and for that reason he was sent to the emergency room yesterday.? He was found to have a moderate size right pleural effusion as well as a small left pleural effusion and was admitted for further evaluation and treatment The following medical issues have been addressed during hospitalization Right pleural effusion Unclear etiology. CTA shows no PE, chest x-ray today showed moderate right-sided pleural effusion and small left pleural effusion Echocar
--- NOTE | 2023-09-25 15:11 | PCRCNOTE ---
SPOKE TO CAROLYN AT [address] [place] [address] CARE, THEY WILL SEND OUT A SD CARD FOR PT TO INSERT INTO EXISTING CPAP MACHINE, AND WILL FAX A COPY OF HIS DOWNLOADED DATA TO DR CABRERA OFFICE FOR UPCOMING APPT IN CLINIC
[2023-09-26 11:59] LABS: Total Protein Pleural Fluid 5.9 g/dL
[2023-09-27 14:18] LABS: Amylase, Pleural Fluid 20 U/L
== END 2023-09-25 15:24 | disposition home or self-care (01) | DRG 206 ==
LOC: ANHED 09-22 02:32 → ANHIMU 09-22 05:53
PROVIDERS: Internal Medicine; Internal Medicine Pulmonary Disease; Admitting Provider Student in an Organized Health Care Education/Training Program; Emergency Provider Physician Assistant; Visit Provider Hospitalist
DX: J95.89 Other postprocedural complications and disorders of respiratory system, not elsewhere classified (principal); J90 Pleural effusion, not elsewhere classified; I97.190 Other postprocedural cardiac functional disturbances following cardiac surgery; I44.2 Atrioventricular block, complete; I48.91 Unspecified atrial fibrillation; I49.3 Ventricular premature depolarization; I11.0 Hypertensive heart disease with heart failure; I50.9 Heart failure, unspecified; E78.2 Mixed hyperlipidemia; I25.10 Atherosclerotic heart disease of native coronary artery without angina pectoris; E11.9 Type 2 diabetes mellitus without complications; G47.33 Obstructive sleep apnea (adult) (pediatric); Z95.4 Presence of other heart-valve replacement; Z95.1 Presence of aortocoronary bypass graft
CPT/HCPCS: 32555; 36415; 36600; 71045; 71046; 71275; 80053; 82042; 82150; 82805; 82947; 82948; 83615; 83690; 83880; 83986; 84155; 84157; 84439; 84443; 84478; 84484; 85025; 85610; 85730; 87015; 87070; 87075; 87102; 87116; 87205; 87206; 88108; 88184; 88305; 89051; 93005; 94618; 94762; 96374; 96375; 99285; A9270; C8929; G0378; J0780; J1815; J1940; Q9957; Q9967

== ENCOUNTER 2023-10-08 12:29 | Outpatient (CLI) | payer MEDICARE, SELFPAY ==
--- NOTE | ~2023-10-08 | XR_ITS ---
EXAMINATION: XR chest 2V Exam Date/Time: 10/08/2023 12:[address] HISTORY: DYSPNEA ON EXERTION (RECENT THORA X 2 WKS AGO RIGHT SIDE) Comparison: None. RESULT: Lines, tubes, and devices: Intact sternotomy wires. Cardiac valve replacement. Electronic device ove r the chest. Lungs and pleura: Minimal bibasilar airspace disease, likely atelectasis. Moderate left and mild rig ht costophrenic angle blunting. Cardiomediastinal silhouette: Stable. Other: No acute osseous or upper abdominal finding. Multiple fractures. IMPRESSION: Moderate-large left and mild right pleural effusions. Reviewed, dictated and finalized at location [facility] JUDGE
== END 2023-10-08 12:30 | disposition home or self-care (01) ==
LOC: ANHIMG 12:30
PROVIDERS: Visit Provider Nurse Practitioner Adult Health
DX: R06.09 Other forms of dyspnea (principal); J90 Pleural effusion, not elsewhere classified
CPT/HCPCS: 71046

== ENCOUNTER 2024-01-30 07:15 | Outpatient (RCR) | payer MEDICARE, SELFPAY ==
[2023-11-06 15:31] VITALS: BP 120/80; PULSE 67; RESP 16; O2SAT 100
[2023-11-06 16:02] VITALS: PULSE 68
== END 2024-01-30 09:11 | disposition home or self-care (01) ==
LOC: ANHCPREHAB 07:15
PROVIDERS: Visit Provider Internal Medicine Cardiovascular Disease
DX: Z95.2 Presence of prosthetic heart valve (principal); Z95.1 Presence of aortocoronary bypass graft
CPT/HCPCS: 93798